=== PATIENT | female | born 1975 | race Caucasian/White ===

== ENCOUNTER 2018-06-11 10:15 | Outpatient (CLI) | payer OTHER, SELFPAY ==
[2018-06-11 22:28] LABS: Estradiol 19 pg/ml
[2018-06-12 19:12] LABS: FSH 115.1 mIU/ml; LH 42.4 mIU/ml
== END 2018-06-11 10:16 ==
PROVIDERS: PCP Nurse Practitioner Family; Visit Provider Nurse Practitioner Family
DX: N91.2 Amenorrhea, unspecified (principal)
CPT/HCPCS: 36415; 82670; 83001; 83002

== ENCOUNTER 2018-09-07 00:06 | Outpatient (CLI) | payer OTHER, SELFPAY ==
[2018-09-07 09:37] LABS: Absolute Basophil Count 0.03 k/cumm (0.0-0.2); Absolute Eosinophil Count 0.13 k/cumm (0.0-0.7); Absolute Lymphocyte Count 1.63 k/cumm (1.2-3.4); Absolute Monocyte Count 0.41 k/cumm (0.11-0.7); Absolute Neutrophil Count 3.44 k/cumm (1.2-6.7); Basophils % 0.5; Eosinophils % 2.3; HGB 13.4 g/dL (12.0-15.5); Lymphocytes % 28.9; Mean Corp. HGB Concentration 33.5 g/dL (32.0-36.0); Mean Corpuscular Volume 92.6 fL (80-95); Monocytes % 7.3; Platelet Count 238 x1000/uL (130-400); RBC 4.32 m/cumm (4.00-5.20); RBC Distribution Width 12.7 % (11.7-14.6); White Blood Cell Count 5.64 k/cumm (4.4-10.8)
[2018-09-07 10:27] LABS: TSH (W/Ref FT4) 1.85 uIU/mL (0.358-3.74)
== END 2018-09-07 00:26 ==
PROVIDERS: PCP Nurse Practitioner Family; Visit Provider Registered Nurse
DX: E03.9 Hypothyroidism, unspecified (principal); R59.1 Generalized enlarged lymph nodes
CPT/HCPCS: 36415; 84443; 85025

== ENCOUNTER 2018-09-17 01:15 | Outpatient (CLI) | payer OTHER, SELFPAY ==
--- NOTE | 2018-09-17 13:17 | DI.MAMMO_ITS ---
SYMPTOMS/DIAGNOSIS: SCREENING, Z12.31, FAMILY H/O BREAST CA BILATERAL SCREENING MAMMOGRAM: Mammograms were interpreted according to the usual protocol including computer analysis with CAD system, tomosynthesis and C view imaging. No prior comparison exams are available. The breasts are composed of heterogeneously dense fibroglandular tissue, breast density category C. No suspicious masses or suspicious microcalcifications are seen. Normal-appearing axillary lymph nodes are partially included on the exam. IMPRESSION: Category 1C, negative mammogram. Yearly screening mammography is recommended. SA ASSESSMENT OF FINDINGS: Negative. Category 1. Patient will receive a letter notifying them of these results. Bi-RADS category C. The breasts are heterogeneously dense, which may obscure small masses.
--- NOTE | 2018-09-17 13:33 | DI.US_ITS ---
SYMPTOMS/DIAGNOSIS: H/O NON-HODGKIN'S LYMPHOMA, ? LYMPHADENOPATHY OF THE LEFT AXILLA ULTRASOUND OF THE LEFT AXILLA: There are several lymph nodes in the left axilla, which maintain a normal fatty hilum. No suspicious-appearing lymph nodes are identified. No mass or fluid collection is seen. IMPRESSION: Left axillary lymph nodes maintain a normal configuration. No suspicious lymph nodes are identified.
== END 2018-09-17 01:35 ==
PROVIDERS: PCP Nurse Practitioner Family; Visit Provider Registered Nurse
DX: R59.0 Localized enlarged lymph nodes (principal); Z85.72 Personal history of non-Hodgkin lymphomas; Z12.31 Encounter for screening mammogram for malignant neoplasm of breast; Z80.3 Family history of malignant neoplasm of breast
CPT/HCPCS: 76642; 77063; 77067

== ENCOUNTER 2018-11-05 00:32 | Outpatient (CLI) | payer OTHER, SELFPAY ==
[2018-11-05] MEDS: Breeza Beverage 473 ML BTL PO ×2 (09:43→09:44)
[2018-11-05] MEDS: Omnipaque 350 MG/ML 50 ML BTL PO (09:43)
[2018-11-05] MEDS: Omnipaque 350 MG/ML 100 ML BTL IJ (11:08)
--- NOTE | 2018-11-05 11:31 | DI.CT_ITS ---
SYMPTOMS/DIAGNOSIS: LYMPHADENOPATHY, AXILLARY, R59.0; PERSONAL H/O NON-HODGKIN LYMPHOMAS, Z85.72 CT OF THE CHEST, ABDOMEN AND PELVIS: Comparison is made with ultrasound of the left axilla dated August,. Images were performed from the clavicles through the ischial tuberosities after IV and oral contrast. CHEST CT: There are no prior comparison chest CT exams. No abnormally enlarged lymph nodes are seen in the axilla, mediastinum or hilum. There is mild scarring in the anterior left medial chest adjacent to the mediastinum. This is presumably scarring related to treated lymphoma. The pulmonary arteries and aorta are well opacified with IV contrast. There is no evidence of pulmonary emboli or aortic dissection. The lungs are clear. No effusions, infiltrates or pulmonary nodules are seen. There are no suspicious bony abnormalities. IMPRESSION: Mild scarring in the medial left upper lobe adjacent to the mediastinum, likely related to treatment of lymphoma. ABDOMINAL AND PELVIC CT: There are no prior comparison exams. The liver, spleen, pancreas and adrenals are unremarkable. Stones are noted in the gallbladder. There is no biliary dilatation or gallbladder wall thickening. There are two nonobstructing stones at the lower pole of the right kidney. There are a few tiny renal cysts. There is no evidence of hydronephrosis. There are two tiny stones at the lower pole of the right kidney. No small bowel dilatation is seen. There is increased quantity of stool seen throughout the colon consistent with constipation. No inflammatory changes are seen. The uterus appears somewhat enlarged. No discrete fibroids are visible. The ovaries and bladder are unremarkable. No adenopathy is seen in the abdomen or pelvis. There is no free air or free fluid. There are no suspicious bony abnormalities. The aorta is normal in diameter. IMPRESSION: Cholelithiasis. No evidence of adenopathy.
== END 2018-11-05 00:52 ==
PROVIDERS: PCP Nurse Practitioner Family; Visit Provider Surgery
DX: R59.0 Localized enlarged lymph nodes (principal); J98.4 Other disorders of lung; K80.20 Calculus of gallbladder without cholecystitis without obstruction; Z85.72 Personal history of non-Hodgkin lymphomas
CPT/HCPCS: 74177; 80061; 71260; J3490; Q9967

== ENCOUNTER 2018-11-15 01:09 | Outpatient (CLI) | payer OTHER, SELFPAY ==
[2018-11-15 08:32] LABS: Absolute Basophil Count 0.02 k/cumm (0.0-0.2); Absolute Eosinophil Count 0.15 k/cumm (0.0-0.7); Absolute Lymphocyte Count 2.03 k/cumm (1.2-3.4); Absolute Monocyte Count 0.51 k/cumm (0.11-0.7); Absolute Neutrophil Count 2.64 k/cumm (1.2-6.7); Basophils % 0.4; Eosinophils % 2.8; HCT 38.8 % (36.0-46.0); HGB 13.4 g/dL (12.0-15.5); Lymphocytes % 37.9; Mean Corp. HGB Concentration 34.5 g/dL (32.0-36.0); Mean Corpuscular Hemoglobin 31.4 pg (27.0-33.0); Mean Corpuscular Volume 90.9 fL (80-95); Monocytes % 9.5; Neutrophils % 49.4; Platelet Count 227 x1000/uL (130-400); RBC 4.27 m/cumm (4.00-5.20); RBC Distribution Width 12.2 % (11.7-14.6); White Blood Cell Count 5.35 k/cumm (4.4-10.8)
[2018-11-15 09:28] LABS: Cholesterol 185 mg/dL (50-200); Glucose 92 mg/dL (70-100); HDL Cholesterol 79 mg/dL (40-60); LDL CHOLESTEROL 94 mg/dL (<100); Triglyceride 48 mg/dL (30-150)
[2018-11-17 11:18] LABS: HIV-1/2 Ag & Ab Screen Negative (NEGAT)
[2018-11-18 10:25] LABS: Hepatitis C Ab w Rflx HCV PCR Negative (NEGAT)
[2018-11-18 11:16] LABS: Syphilis Serology (RPR) Negative (Negative)
[2018-11-18 14:10] LABS: Chlamydia Result Negative; GC Result Negative
== END 2018-11-15 01:29 ==
PROVIDERS: PCP Nurse Practitioner Family; Visit Provider Surgery
DX: Z00.00 Encounter for general adult medical examination without abnormal findings (principal); Z13.220 Encounter for screening for lipoid disorders; Z11.3 Encounter for screening for infections with a predominantly sexual mode of transmission; Z11.59 Encounter for screening for other viral diseases; Z11.4 Encounter for screening for human immunodeficiency virus [HIV]; Z85.72 Personal history of non-Hodgkin lymphomas
CPT/HCPCS: 36415; 80061; 82947; 83721; 86803; 87389; 87491; 87591; 85025; 86592

== ENCOUNTER 2019-09-29 12:16 | Outpatient (CLI) | payer OTHER, SELFPAY ==
[2019-09-29 14:43] LABS: TSH 0.96 uIU/mL (0.36-3.74)
== END 2019-09-29 12:36 ==
PROVIDERS: PCP Nurse Practitioner Family; Visit Provider Nurse Practitioner Family
DX: E03.9 Hypothyroidism, unspecified (principal)
CPT/HCPCS: 36415; 84443

== ENCOUNTER 2020-06-16 03:18 | Outpatient (CLI) | payer OTHER, SELFPAY ==
[2020-06-16 12:12] LABS: TSH (W/Ref FT4) 0.93 uIU/mL (0.36-3.74)
== END 2020-06-16 03:38 ==
PROVIDERS: PCP Nurse Practitioner Family; Visit Provider Nurse Practitioner Family
DX: E03.9 Hypothyroidism, unspecified (principal)
CPT/HCPCS: 36415; 84443

== ENCOUNTER 2021-03-23 19:34 | Outpatient (REF) | payer OTHER, SELFPAY ==
[2021-03-23 19:46] LABS: Abs Immature Grans 0.01 10^3/uL (0.0-0.06); Absolute Basophil Count 0.04 10^3/uL (0.0-0.2); Absolute Eosinophil Count 0.23 10^3/uL (0.0-0.7); Absolute Lymphocyte Count 3.06 10^3/uL (1.2-3.4); Absolute Monocyte Count 0.55 10^3/uL (0.1-0.8); Absolute Neutrophil Count 3.75 10^3/uL (1.2-6.7); Basophils % 0.5; HCT 36.7 % (36.0-46.0); HGB 12.3 g/dL (11.2-15.7); Immature Grans % 0.1; Lymphocytes % 40.1; MCH 30.4 pg (27.0-33.0); MCHC 33.5 % (32.0-36.0); MCV 90.8 fL (80-95); Monocytes % 7.2; Neutrophils % 49.1; Nucleated RBC 0 %; Platelet Count 262 10^3/uL (130-400); RBC 4.04 10^6/uL (3.93-5.22); RDW 12.4 % (11.7-14.6); RDW-SD 41.1 fL; WBC 7.64 10^3/uL (4.4-10.8)
[2021-03-23 20:11] LABS: ALT 28 U/L (14-59); AST 15 U/L (15-37); Albumin 4.2 g/dL (3.4-5.0); Alkaline Phosphatase 50 U/L (46-116); Anion Gap 6.7 mmol/L (3-11); BUN 16 mg/dL (7-18); Bilirubin, Total 0.3 mg/dL (0.2-1.0); CO2 31.3 mmol/L (21.0-32.0); CREATININE 0.7 mg/dL (0.55-1.02); Calcium 9.3 mg/dL (8.5-10.1); Chloride 104 mmol/L (98-107); Glucose 99 mg/dL (74-106); Sodium 142 mmol/L (136-145); TSH (W/Ref FT4) 1.17 uIU/mL (0.36-3.74); Total Protein 7.4 g/dL (6.4-8.2)
== END 2021-03-23 19:35 | disposition home or self-care (01) ==
LOC: LBN 19:34
PROVIDERS: PCP Nurse Practitioner Family; Visit Provider Nurse Practitioner Family
DX: E03.9 Hypothyroidism, unspecified (principal); Z01.818 Encounter for other preprocedural examination
CPT/HCPCS: 80053; 84443; 85025

== ENCOUNTER 2021-04-04 02:24 | Outpatient (CLI) | payer OTHER, SELFPAY ==
[2021-04-04 11:39] LABS: Source Nasal/Nares
[2021-04-04 17:56] LABS: COVID-19 PCR Negative (Negative)
== END 2021-04-04 02:25 | disposition home or self-care (01) ==
LOC: LBO 02:24
PROVIDERS: PCP Nurse Practitioner Family; Visit Provider Surgery
DX: Z20.822 Contact with and (suspected) exposure to COVID-19 (principal); Z01.818 Encounter for other preprocedural examination
CPT/HCPCS: 87635

== ENCOUNTER 2021-04-05 06:14 | Day surgery (SDC) | payer OTHER, SELFPAY ==
--- NOTE | 2021-04-04 20:46 | W.PM.HP.N ---
Date of service: 04/05/21 Time of Service: 07:15 Assessment and Plan Assessment and plan (1) Gallstones without obstruction of gallbladder: Status: Acute Assessment and plan: The alternatives to surgery, risks, complications, and the possible need to convert to open cholecystectomy were discussed. Also bleeding, infection, pneumonia, blood clots, complications of anesthesia, damage to bowel, bladder, blood vessels, or bile ducts, liver, need for blood transfusions. Also: chronic pain, chronic diarrhea, reoccurrence of signs and symptoms, port site hernias, adhesions. All questions were answered and the patient elected to proceed with surgery. History of Present Illness Consults Consult date: 04/05/21 Narrative: pt is here today for GB surgery Since I saw her in the office, she has been feeling generally unwell. No severe attacks. No pain or nausea today. All questions answered and is stable for procedure. US: Multiple mobile gallstones are noted. The gallbladder wall is not thickened. There is no pericholecystic fluid or sonographic Botello's sign. The liver is mildly enlarged and shows mild fatty infiltration. No focal liver mass or biliary dilatation is seen. A stone is noted in the lower pole of the left kidney. No hydronephrosis is seen. The aorta is normal in diameter. The spleen is normal in size. The pancreas is unremarkable. from clinic consult 02/21/21: Pt is having RUQ. She has had it off/on for several yrs. Pt has a known hx of gallstones. A week ago Sunday she woke up w/ significant pain in RUQ. Sunday night- she had pizza Sunday and was fine. She did have pizza for lunch on Sunday. no vomiting. occ nausea. No diarrhea. No one at home is ill. no GI viruses in the home or at work. By Sunday, the pain was radiating straight into her back. She has No shoulder pain. No diarrhea. No H/I. no epigastric pain. She denies pain or diff swallowing. She doesn't take nsaids/asa often. smoker- no. no prior hx of stomach problems. coffee- 1-2 daily. she drinks tea as well. She has a hx of Lymphoma- 2006. She did chemo and XRT. She doesn't f/u w/ oncology as it has been 5 yrs. She had full chest/abdom XRT. Her bowel are regular. NO changes in wt. no changes in diet or supplements. no traveling. no longer gets periods. no XRT. she does have kids. Review of Systems All systems reviewed & are unremarkable except as noted in HPI and below PFSH Medical History History of female sterilization Fallopian ring Hypothyroidism Non-Hodgkin's lymphoma in remission last chemo tx 09/2007 Onychia, toe Peripheral neuropathy Social History Smoking/Tobacco Use Status: Former Tobacco Use Quit Date: 10/22/94 Smoking risk assessment performed?: Yes Alcohol Intake: current Alcohol Intake frequency: a few times a week Substance use type: does not use Do you feel safe at home: Yes Do you feel safe in your relationship?: Yes Meds Allergies and Home Medications Allergies Allergy/AdvReac Type Severity Reaction Status Date / Time penicillin V [From Pen-Vee K] Allergy Intermediate hives Verified 04/05/21 06:45 Home Medications Medication Instructions Recorded Confirmed Type cholecalciferol (vitamin D3) 25 25 mcg PO DAILY 02/18/21 04/05/21 History mcg (1,000 unit) capsule levothyroxine 112 mcg tablet 112 mcg PO DAILY 02/18/21 04/05/21 History Exam Const General: cooperative, healthy appearing, comfortable, no acute distress, well developed and well groomed Nutritional Appearance: average body habitus and well nourished Orientation: alert, awake and oriented x3 HENMT Head: normal to inspection, normocephalic and atraumatic Ears: hearing grossly normal bilaterally and external ears normal General nose exam: external nose normal Face and sinus: normal facial exam and sinuses nontender Mouth: oral mucosae normal, lip normal, tongue normal and moist mucous membranes Teeth and gingiva: dentition normal Eyes General: appearance normal, both eyes and all related structures Conjunctivae: conjunctivae normal Sclera: sclerae normal Pupils: PERRL Neck Neck: normal visual inspection and full ROM Chest Chest: normal inspection of the chest Resp Effort & Inspection: normal respiratory effort, able to speak in complete sentences, no cough, no nasal flaring, not tachypneic and no use of accessory muscles Auscultation: clear to auscultation bilaterally, no rales, no rhonchi and no wheezes Cardio Jugular venous pressure: no JVD Rate: regular rate Rhythm: regular rhythm GI Inspection: normal to inspection, no edema and non-distended Palpation: soft, no masses, nontender and No ascites Auscultation: normal bowel sounds Skin General skin exam: no rashes or lesions noted Trauma: no lacerations or abrasions Neuro General: patient alert, patient oriented x3, oriented, gait normal, moves all extremities, no focal motor deficits and CN's II-XI intact bilaterally Cognition: normal cognition Speech: speech normal Gait: normal gait Motor: muscle tone normal throughout Extrem General: normal to inspection, full ROM and no clubbing, cyanosis or edema Psych Appearance: grossly normal and well kempt Mental Status: mental status grossly normal Speech and Movement: speech and movement normal Affect: normal affect COVID-19 Screening Have you, or household traveled for leisure in last 14 days?: No Had IN PERSON contact w/suspected or confirmed C-19 person: No
[2021-04-05] VITALS (16 sets, daily range): BP systolic 100–116; BP diastolic 43–84; PULSE 58–83; RESP 14–28; TEMP 35.9–36.6; O2SAT 94–100; BMI 24.2
[2021-04-05] MEDS: Acetaminophen 500 MG TAB 1000 MG PO (06:59)
[2021-04-05] MEDS: Gabapentin 300 MG CAP PO (06:59)
[2021-04-05] MEDS: Lactated Ringers 1,000 ML 80 ML IV (07:00)
--- NOTE | 2021-04-05 07:10 | W.ANESPRE ---
General Info Date of Service Date Performed: 04/05/21 Height: 5 ft 10 in Weight: 76.5 kg Body Mass Index (BMI): 24.2 Surgical Procedure: Operation Date: 04/05/21 07:40 Proposed Procedures Side Surgeon p Cholecystectomy Laparoscopic Barbara Rodríguez DO Meds Allergies and Home Medications Allergies Allergy/AdvReac Type Severity Reaction Status Date / Time penicillin V [From Pen-Vee K] Allergy Intermediate hives Verified 04/05/21 06:45 Home Medication Medication Instructions Recorded cholecalciferol (vitamin D3) 25 25 mcg PO DAILY 02/18/21 mcg (1,000 unit) capsule levothyroxine 112 mcg tablet 112 mcg PO DAILY 02/18/21 Current Visit Medications: Current Medications Generic Name Dose Route Start Last Admin Trade Name Salinasq PRN Reason Stop Dose Admin Acetaminophen 1,000 mg 04/05/21 06:00 04/05/21 06:59 Acetaminophen 500 Mg Tab PO 05/04/21 23:59 1,000 mg PREOP LAYTON Administration Gabapentin 300 mg 04/05/21 06:00 04/05/21 06:59 Gabapentin 300 Mg Cap PO 05/04/21 23:59 300 mg PREOP LAYTON Administration Ringer's Solution 1,000 mls @ 80 mls/hr 04/05/21 06:00 IV 05/04/21 23:59 INFUSION LAYTON Cefazolin Sodium/Dextrose 1 gm in 50 mls @ 100 mls/hr 04/05/21 06:00 Ancef Duplex IVPB 05/04/21 05:59 PREOP LAYTON IV Miscellaneous Supplies 1 each 04/05/21 06:00 Iv Access IV 05/04/21 23:59 DIRECTED LAYTON Sodium Chloride 0 ml 04/05/21 06:00 Normal Saline Flush 10 Ml Syr IV 05/04/21 23:59 PRN PRN Sodium Chloride 0 ml 04/05/21 06:00 Normal Saline 10 Ml Vial IJ 05/04/21 23:59 DIRECTED PRN Sterile Water 0 ml 04/05/21 06:00 Water,Injection,Sterile 10 Ml Vial IJ 05/04/21 23:59 DIRECTED PRN PFSH Active Problems Active Problems: Problem Status Onset Code Encounter for screening for other viral diseases Z11.59 Gallstones without obstruction of gallbladder K80.20 Non-Hodgkin's lymphoma in remission C85.90 Medical History Medical History History of female sterilization Fallopian ring Hypothyroidism Non-Hodgkin's lymphoma in remission last chemo tx 09/2007 Onychia, toe Peripheral neuropathy Tobacco Smoking/Tobacco Use Status: Former Tobacco Use Alcohol Alcohol Intake: current Alcohol intake frequency: a few times a week Substance Use Substance use type: does not use Vital Signs and Lab Results Vital Signs Most Recent Vital Signs in EMR: Most Recent Vital Signs Temp Pulse Resp BP Pulse Ox 36.5 C 69 14 116/74 100 04/05/21 06:46 04/05/21 06:46 04/05/21 06:46 04/05/21 06:46 04/05/21 06:46 Lab Results Blood Type / Crossmatch: No Data to Display Complete Blood Count: White Blood Count 7.64 10^3/uL (4.4-10.8) 03/23/21 16:30 03/23/21 Red Blood Count 4.04 10^6/uL (3.93-5.22) 03/23/21 16:30 03/23/21 Hemoglobin 12.3 g/dL (11.2-15.7) 03/23/21 16:30 03/23/21 Hematocrit 36.7 % (36.0-46.0) 03/23/21 16:30 03/23/21 Platelet Count 262 10^3/uL (130-400) 03/23/21 16:30 03/23/21 Complete Metabolic Panel: Sodium Level 142 mmol/L (136-145) 03/23/21 16:30 03/23/21 Potassium Level 4.0 mmol/L (3.5-5.1) 03/23/21 16:30 03/23/21 Chloride Level 104 mmol/L (98-107) 03/23/21 16:30 03/23/21 Carbon Dioxide Level 31.3 mmol/L (21.0-32.0) 03/23/21 16:30 03/23/21 Blood Urea Nitrogen 16 mg/dL (7-18) 03/23/21 16:30 03/23/21 Creatinine 0.7 mg/dL (0.55-1.02) 03/23/21 16:30 03/23/21 Calcium Level 9.3 mg/dL (8.5-10.1) 03/23/21 16:30 03/23/21 Albumin 4.2 g/dL (3.4-5.0) 03/23/21 16:30 03/23/21 Glucose Level 99 mg/dL (74-106) 03/23/21 16:30 03/23/21 Liver Function Panel: Alanine Aminotransferase (ALT/SGPT) 28 U/L (14-59) 03/23/21 16:30 03/23/21 Aspartate Amino Transf (AST/SGOT) 15 U/L (15-37) 03/23/21 16:30 03/23/21 Coagulation Panel: No Data to Display Cardiac Panel: No Data to Display Arterial Blood Gas: No Data to Display Venous Blood Gas: No Data to Display Pancreas Panel: No Data to Display Thyroid Panel: Thyroid Stimulating Hormone (TSH) 1.17 uIU/mL (0.36-3.74) 03/23/21 16:30 03/23/21 Infectious Disease: Coronavirus (COVID-19)(PCR) Negative (Negative) 04/04/21 08:38 04/04/21 Coronavirus 2019 Source Nasal/nares 04/04/21 08:38 04/04/21 Blood Cultures: No Data to Display Toxicology Panel: No Data to Display Panel: No Data to Display Anesthesia Assessment and Plan Anesthesia History Personal History: No History of Anesthesia Complications Family History: No Family History of Anesthesia Complications Exercise Tolerance Exercise Tolerance: Metabolic Equivalents>4 Pertinent Negatives Pertinent Negatives: No Symptoms of GERD, No Major Cardiovascular Symptoms or Complaints and No Major Pulmonary Symptoms or Complaints Cardiac & Pulmonary Exam Cardiac Exam: Normal S1/S2 Heart Sounds Pulmonary Exam: Clear Bilateral Breath Sounds Airway Exam Known Difficult Airway: No Mallampati Class: 2 Mouth Opening: Normal (> 3cm) Thyromental Distance: Greater than 3 cm Neck Range of Motion: Full ROM Neck Circumference: Normal Teeth Condition: Normal Dentition ASA Classification ASA Score: ASA 2 Emergency Case?: No NPO Status NPO Status: NPO Clears >2 hours, Solids >8 hours Status Status: Not Relevant due to Medical History Anesthesia Plan Resuscitation Status: Full Code Anesthesia Technique: General Anesthesia Airway Planned: Endotracheal Tube Monitors Used: Standard Monitors
[2021-04-05] MEDS: ceFAZolin 1 GM/50 ML BAG IVPB (07:41)
--- NOTE | 2021-04-05 08:28 | GB_PTH ---
PATIENT: Mary Roche LOC: [facility] U#:[id number] AGE/SX: 45/F ROOM: RE04/05/[address]: Barbara Rodríguez : 1975 BED: DIS: 04/05/2021 SPEC #: [id number] RECD: 04/05/21 12:50 STATUS: DELFINO REQ #: [id number] SONALI: 04/05/21 08:[address]: Barbara Rodríguez DEPT: Surgical Specimen RECD BY: Verona Johnston ENTERED: 04/05/21 12:53 SP TYPE: GB OTHR DR: Ely Crouch Tissues: 1 - GALLBLADDER Procedures: GROSS AND MICRO LEVEL 3 Comments: [id number]
--- NOTE | 2021-04-05 09:02 | W.PM.OP ---
Date of service: 04/05/21 Time of Service: 09:03 Operative Note Operative Note DATE OF PROCEDURE: 04/05/21 PRE-OP DIAGNOSIS: gallstones POST-OP DIAGNOSIS: same PROCEDURE: lap dion SURGEON: Barbara Martin ANESTHESIA TYPE: Local By Surgeon and General LMA/ETT Refer to Anesthesia Record ESTIMATED BLOOD LOSS: 5 PATHOLOGY: none sent COMPLICATIONS: None Patient was transported to: PACU Patient's condition: stable Procedure Description: INDICATIONS: The pt is seen at the request of there PCP regarding acute on chronic cholecystitis, cholelithiasis. The pt has failed outpt conservative medical measures and is here today for laparoscopic cholecystectomy. Informed consent was obtained, explaining risks and benefits of the procedure including but not limited to bleeding, infection, pneumonia, blood clots, possible damage to bowel, bladder, blood vessels, bile ducts, possible open procedure, complications of general anesthesia and other unforetold complications. PROCEDURE: The patient agrees and is brought to the operative room suite and placed in supine position. Anesthesia was administered per the Department of Anesthesia. The patient did receive IV antibiotics. NG tube and Renner catheter are placed. The patient was prepped and draped in the usual sterile fashion using DuraPrep scrub solution. Pause for the cause was done. 20 mL of 1% buffered lidocaine was used for local anesthetization. A stab incision was made in the umbilicus and the Verres inserted. Drop test was positive and insufflation was begun. When 15 mm of pressure was noted on the monitor, the Veress was removed and #5 port inserted. The camera was inserted through the port and shows no damage to underlying structures. A 10 mm port was then placed in the epigastric position under direct visualization following creation of local field blocks as well as two 5 mm ports in the right upper quadrant. The gallbladder fundus was grasped and retracted towards the right shoulder. Infundibulum was grasped and retracted laterally. The hepat-duodenal ligament is entered. The cystic duct and artery are dissected out and the most inferior portion of the gallbladder plate is removed from the liver and the critical view of safety was obtained after clearing away all fatty material. Endo Clips were placed across the duct and artery and these structures are divided. The remainder of the gallbladder was excised from the liver bed. The gallbladder was placed in a bag and brought out. Examination of the gallbladder shows indeed the cystic duct and artery to have been divided. The remainder of the abdomen was copiously irrigated with a liter of saline. All saline is removed. There is no bleeding or bile leakage from the liver bed or the clips sites. An EndoClose needle was used to close the 10 mm port site with an 0 Vicryl. All ports and instruments are removed. SPonge and needle counts are correct. Pneumoperitoneum is evacuated and the port sites are monitored to make sure there is no bleeding at the time of desufflation. Port sites are irrigated and the skin is closed with 4-0 Monocryl in a running subcuticular fashion. Skin glue sterile dressings are applied. The patient tolerated the procedure well without complications, transferred to the recovery room in stable condition. BARBARA MARTIN, DO
--- NOTE | 2021-04-05 09:05 | W.PM.DSUDISC ---
Discharge Plan Disposition Patient Disposition: HOME Condition: Good Discharge Details Reason For Visit: gallbladder removal Attending Provider: Barbara Rodríguez Primary Care Provider: Ely Crouch Home Meds and New Rx's Prescriptions: New ondansetron HCl [Zofran] 4 mg tablet 4 mg PO Q6H PRNQty: 7 RF: 0 tramadol [Ultram] 50 mg tablet 50 mg PO Q6H PRNQty: 14 RF: 0 Continued cholecalciferol (vitamin D3) 25 mcg (1,000 unit) capsule 25 mcg PO DAILY RF: 0 levothyroxine [Synthroid] 112 mcg tablet 112 mcg PO DAILY RF: 0 Discharge Instructions Additional Instructions: Care after Gallbladder Surgery -You should walk frequently, gradually, increasing the distance. You may climb stairs, just go slowly. -? MEDICATIONS: Alternate Tylenol 1000mg by mouth every 8 hours and Ibuprofen 600mg every 6 hours. Make sure you take ibuprofen with food and not on an empty stomach. Take the Tylenol and ibuprofen continuously for the first 72hrs- not just when you have pain. Use the tramadol for breakthrough pain. Use ICE! Twenty minutes on, and then off, continuously for the first 72hours. If you are taking narcotic pain medication, follow the instructions on the label and do not drive. Pain medications can make you very constipated. Make sure you are moving your bowels daily. If not, take Miralax, milk of magnesia or magnesium citrate. Anesthesia makes you very constipated. Take a dose of milk of magnesia the morning after surgery. ? Use an ice bag continuously for the first 72 hours. This helps to decrease swelling, which causes pain. It is normal to be more sore/painful and swollen towards the end of the day and first thing in the morning. ? Gallbladder surgery can make you very nauseated; use Zofran for nausea, for the first 24 hours. The nausea generally stops after 24 hours. ? Use milk of magnesia or prune juice to prevent constipation (this is a particular side effect of pain medication). Do not allow yourself to become constipated. ? Avoid fatty or greasy foods; introduce these slowly, with care, after about 1 month. Follow the low-fat diet sheet that will be given to you at the office or hospital. ? Start out eating very small, bland amounts of food. Do not take pain pills on an empty stomach. - You can remove the Band-Aids and take a shower 24 hours after surgery. There will be some narrow white strips of tape across your incisions (under the Band-Aids). DO NOT REMOVE THESE. It is all right if they get wet. They will be removed in the doctor?s office. ? Do not go swimming or sit in a hot tube for two weeks. ? There are no stitches to remove. ? Do not drive your car x72hrs and then only if you have no pain and can move freely. Do not drive if you are taking pain narcotic pain medications. ? You may resume sexual activity whenever pain and soreness subside, usually in 2 weeks. ? Do no lift anything over 5 lbs. for the first 10 days. Minimize strenuous activity for the next two weeks. ? You may return to work in one week, or when you feel able, provided you do not have to do any heavy lifting or prolonged standing. ? You should return to Dr. Rodríguez?s office for a post-op appointment about one week after surgery. Please call the Surgical Clinic at: [phone] to schedule an appointment. My Medications for pain and nausea are: ibuprofen and ultram and zofran When to Call the Office: ? If the incision becomes red or swollen, or there is more than a little drainage from it. ? If you develop a temperature higher than 100.5 F. ? If your eyes turn yellow ? Vomiting and can?t keep fluids down Activity:: see above Remove Dressings/Wound Care:: 24 hours Shower/Bathe:: 24 hours Diet:: low fat DS: Diagnosis Discharge Diagnosis (1) Gallstones without obstruction of gallbladder: Status: Acute
[2021-04-05] MEDS: HYDROmorphone 2 MG/ML VIAL IVP ×2 (09:17→09:27)
[2021-04-05] MEDS: Normal Saline Flush 10 ML SYR IV ×2 (09:19→13:05)
[2021-04-05] MEDS: fentaNYL 100 MCG/2 ML VIAL IVP (09:34)
[2021-04-05] MEDS: Ketorolac 15 MG/ML VIAL IVP (09:59)
--- NOTE | 2021-04-05 11:04 | W.ANESPOSTOP ---
Postoperative Evaluation Date, Time and Location Date Performed: 04/05/21 Time Performed: 11:04 Patient Location: Day Surgery Unit Vital Signs Most Recent Imported Vital Signs: Most Recent Vital Signs Temp Pulse Resp BP Pulse Ox 36.2 C L 58 L 21 109/75 98 04/05/21 10:38 04/05/21 10:38 04/05/21 10:38 04/05/21 10:38 04/05/21 10:38 Pain Score Most Recent Pain Score: Most Recent Pain Score Pain Level 3 04/05/21 10:38 Assessment Mental Status: Awake (Alert & Oriented to Patient Baseline) Airway and Respiratory Function: Patent airway with normal (patient baseline) respiratory exam Cardiovascular Function: Hemodynamically Stable Hydration Status: Adequately Hydrated Nausea & Vomiting: No Nausea or Vomiting Pain: Pain is tolerable/mild (<5/10) Peripheral Nerve Block: Patient did not receive a nerve block
[2021-04-05] MEDS: traMADol 50 MG TAB PO (11:11)
[2021-04-05] MEDS: Droperidol 5 MG/2 ML VIAL 0.625 MG IVP (13:05)
[2021-04-05] MEDS: Scopolamine 1 MG/3 DAYS PATCH TD (14:22)
== END 2021-04-05 14:36 | disposition home or self-care (01) ==
PROVIDERS: PCP Nurse Practitioner Family; Visit Provider Surgery
PROC: 0FT44ZZ Resection of Gallbladder, Percutaneous Endoscopic Approach (ICD-10-PCS; CPT 47562; principal; 2021-04-05 07:30)
DX: K80.10 Calculus of gallbladder with chronic cholecystitis without obstruction (principal); Z85.72 Personal history of non-Hodgkin lymphomas
CPT/HCPCS: 47562; 88304; J0690; J1100; J1790; J1885; J2250; J2405; J2704; J3010

== ENCOUNTER 2021-07-08 10:12 | Outpatient (REF) | payer OTHER, SELFPAY ==
[2021-07-09 01:12] LABS: COVID-19 RT-PCR UVMMC Result Negative (Negative)
== END 2021-07-08 10:13 | disposition home or self-care (01) ==
LOC: LBO 10:12
PROVIDERS: PCP Nurse Practitioner Family; Visit Provider Nurse Practitioner Family
DX: Z20.822 Contact with and (suspected) exposure to COVID-19 (principal)
CPT/HCPCS: U0003

== ENCOUNTER → 2022-08-15 01:44 | Outpatient (CLI) | payer OTHER, SELFPAY ==
--- NOTE | 2022-08-15 | DI.CT_ITS ---
Exam(s) CT CHEST W EXAM: CT CHEST W CLINICAL HISTORY: HX LYMPHOMA Z85.72 CHEST WALL MASS R22.2. TECHNIQUE: Multi planar reconstructions were performed. CONTRAST MATERIAL: Omnipaque 350; 75 cc COMPARISON: No exams were available for comparison FINDINGS: CHEST: KRISTIE: There is a skin marker on the anterior chest wall medial aspect of the left breast. There is no skin thickening nor subcutaneous abnormality at this exact level. No obvious significant asymmetry in the anterior rib cartilages at this level. LUNGS: Some benign-appearing increased markings are noted in the anterior segment of the left upper l obe. Also similar findings in the medial segment of the right middle lobe. There are no confluent p ulmonary infiltrates. There are no pleural effusions. No significant findings in trachea and mainst em bronchi. No bronchiectasis. MEDIASTINUM: There is no hilar nor mediastinal adenopathy. Visualized thyroid unremarkable. CARDIAC: Heart size is normal. There is no pericardial effusion.Caliber of the thoracic aorta is wit hin normal limits. VISUALIZED UPPER ABDOMEN:There are no significant adrenal masses. Spleen size normal. Gallbladder s urgically absent. OSSEOUS: No significant osseous lesions.. IMPRESSION: 1. No significant subcutaneous findings immediately subjacent to the skin marker which is over the me dial aspect left breast. Also no skin thickening at this level. 2. Benign-appearing lung markings in the anterior segment left upper lobe and medial segment right mi ddle. No confluent infiltrates. No ominous pulmonary nodules. No pleural effusions nor intrathorac ic adenopathy. 3. Normal spleen size. Gallbladder surgically absent. RADIATION DOSE DELIVERED: 495.18mGy.cm Total DLP DATA REPOSITORY: All CT scans at this facility are submitted to the National Radiology Data Registry (NRDR) Dose Index Registry (DIR) with the [employer] (ACR). RADIATION OPTIMIZATION: All CT scans at this facility use at least one of these dose optimization te chniques: automated exposure control; mA and/or kV adjustment per patient size (includes targeted exa ms where dose is matched to clinical indication); or iterative reconstruction.
[2022-08-15] MEDS: Omnipaque 350 MG/ML 100 ML BTL IJ (08:56)
[2022-08-15] MEDS: Normal Saline Flush 10 ML SYR IVP (09:04)
== END ==
PROVIDERS: PCP Nurse Practitioner Family; Visit Provider Nurse Practitioner Primary Care
DX: R91.8 Other nonspecific abnormal finding of lung field (principal)
CPT/HCPCS: 71260; J3490

== ENCOUNTER 2022-09-07 03:19 | Outpatient (CLI) | payer OTHER, SELFPAY ==
[2022-09-07 08:27] LABS: TSH (W/Ref FT4) 3.39 uIU/mL (0.36-3.74)
== END 2022-09-07 03:20 | disposition home or self-care (01) ==
PROVIDERS: PCP Nurse Practitioner Family; Visit Provider Nurse Practitioner Primary Care
DX: E03.9 Hypothyroidism, unspecified (principal)
CPT/HCPCS: 36415; 84443

== ENCOUNTER 2022-11-20 02:53 | Outpatient (CLI) | payer OTHER, SELFPAY ==
[2022-11-20 11:45] LABS: TSH (W/Ref FT4) 1.11 uIU/mL (0.36-3.74)
== END 2022-11-20 02:54 | disposition home or self-care (01) ==
PROVIDERS: PCP Nurse Practitioner Family; Visit Provider Nurse Practitioner Primary Care
DX: E03.9 Hypothyroidism, unspecified (principal)
CPT/HCPCS: 36415; 84443

== ENCOUNTER 2022-12-26 02:27 | Outpatient (CLI) | payer OTHER, SELFPAY ==
--- OUTSIDE RECORDS SUMMARY | 2022-12-24 16:04 | XMS_ITS | Continuity of Care Document ---
Author Name Unknown Organization [facility] Ambulatory Clinics Address [address] [place] [address] Care Team Providers Care Infrastructure Manager Name Role Phone Arleen Estrada APRN Primary Care Physician Encounter [facility] NBR [id number] Date(s): 09/26/22 - 09/26/22 [facility] Ambulatory [facility] [address] [place] [id number] Encounter Diagnosis PMB (postmenopausal bleeding)(Discharge Diagnosis) - 09/26/22 History of non-Hodgkin's lymphoma(Discharge Diagnosis) - 09/26/22 Hypothyroidism(Discharge Diagnosis) - 09/26/22 Discharge Disposition: Home or Self Care Attending Physician: Ignacio Summers Allergies, Adverse Reactions, Alerts Substance Reaction Severity Status venlafaxine Unknown Active penicillin V potassium Hives Moderate Activ e traMADol Unknown Active Functional Status 09/26/22 Other exposure to Infectious Disease Non e Medications cholecalciferol 1000 intl units oral capsule 25 mcg = 1 cap, Oral, Daily, # 100 cap, 0 Refill(s) Start Date: 09/24/22 Status: Ordered levothyroxine 125 mcg (0.125 mg) oral tablet 125 mcg = 1 tab, Oral, Daily, # 90 tab, 0 Refill(s) Start Date: 09/26/22 Status: Ordered Problem List Condition Confirmation Course Effective Dates Status H ealth Status Informant Amenorrhea Confirmed Active Cholelithiasis 1 Confirmed Active Fatigue Confirmed Active H/O herpes zoster virus Confirmed Active History of non-Hodgkin's lymphoma 2 Confirmed Active Hypothyroidism Confirmed Active Chest wall mass Confirmed Active Onychia, toe Confirmed Active Peripheral neuropathy 3 Confirmed Active PMB (postmenopausal bleeding) Confirmed Active 1cho 2Remission - six cycles of R-CHOP, then radiation therapy ending 12/2007 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 Procedures Procedure Date Related Diagnosis Body Site Status Laparoscopic cholecystectomy 09/1899 Completed Vital Signs Most recent to oldest [Reference Range]: 1 Blood Pressure [90-140/60-90 mmHg] 102/7 4mmHg (09/26/22 9:38 AM) Weight 78.2 kg (09/26/22 9:38 AM) Weight Measured (lbs) 172.401 lb (09/26/22 9:38 AM) [place] Body Weight Calculated 68.5 kg (09/26/22 9:38 AM) Height 177.80 cm (09/26/22 9:38 AM) Height/Length Measured (inches) 70 inch (09/26/22 9:38 AM) BSA Measured 1.97 m2 (09/26/22 9:38 AM) Body Mass Index 24.74 kg/m2 (09/26/22 9:38 AM) Social History Social History Type Response Smoking Status Smoking tobacco use: Former tobacco user;Never; Total pack years: 4; 1 entered on: 09/24/22 Sex Female 1Quit smoking in 1994 Physician Outpatient Note * Ignacio Summers P: PERFORM Event Display: Office Clinic Note Physician Authored Date: [id number] JYOTI GARVIN :1975 Age:46 years Sex:Female Visit Date:09/26/2022 Primary Care Physician: Arleen Estrada APRN Chief Complaint Referral due to Postmenopausal Bleeding Additional Information Postmenopausal since 2009, possible brought on by chemotherapy/radiation in History of Present Illness 46yo Female, The patient is here today by referral due to Postmenopausal Bleeding.?? She reports a single episode of vaginal bleeding that began on??08/27/2022. ??At first there was light spotting??for 1 day. ??Then on the second third day??bleeding increased. ??She characterizes it as a light menstrual flow.??Then on the fourth day there was??light spotting. ??After??that day there was no further bleeding.?? He has not had??any menstruation since 2009.?? She has a history of??Non-Hodgkin's Lymphoma, and received Chemotherapy and Radiation??treatments in 2006 and 2007.?? Her last Pap smear??done??on 09/05??at??[facility]. ??It??was Cytology Negative and Negative for High Risk HPV DNA.?? She reports having??HPV on a Pap smear in the past. Review of Systems Constitutional: No fevers, chills, sweats, no weight loss, no weight gain Eye: No new visual problems Respiratory: No shortness of breath, cough Cardiovascular: No chest pain, palpitations, syncope Gastrointestinal: No nausea, vomiting, diarrhea Genitourinary: No blood in urine, no urinary urgency, frequency, leakage, no painful urination, no difficulty urinating Power Driven Brush Maker: Postmenopausal bleeding. ??No??odor, discharge, no vulvar itching, pain, dryness,??no pelvic pain Heme/Lymph: Negative for bruising tendency, swollen lymph glands Endocrine: Thyroid disease. ??Negative for cold intolerance, new unexpected hair growth Skin: No bruises, abrasions Psychiatric: No anxiety, depression Physical Exam Vitals & Measurements BP:??102/74?? HT:??177.80??cm?? WT:??78.2??kg?? BMI:??24.74?? BSA:??1.97?? General: Alert and oriented, well nourished, no acute distress Eye: Pupils equal, EOMI HEENT: Normocephalic, grossly normal hearing, moist oral mucosa, no scleral icterus Neck: Supple, no thyroid enlargement, no lymphadenopathy Lungs: Clear to auscultation, non-labored respiration Heart: Normal rate, regular rhythm, no murmurs Abdomen: Soft, non-tender, non-distended, normal bowel sounds, no masses Musculoskeletal: Grossly normal range of motion and strength, no tenderness or swelling Skin: Skin is warm, dry, no rashes Neurologic: Awake, alert, and oriented X4, CN II-XII grossly intact Psychiatric: Cooperative, appropriate mood and affect ?? Vulva: Normal external female genitalia, no masses, mild atrophy, Bartholin???s and Lipscomb???s glands normal Vagina: No abnormal discharge or blood. Adequate pelvic support Cervix: Normal appearance, no lesions or lacerations Uterus: Normal size, shape, non tender, mobile, no prolapse Adnexa: No masses or tenderness Procedure ENDOMETRIAL BIOPSY??with Cervical Dilation: ?? With the patient in supine position on the exam table, a??speculum was inserted into the vagina.?? The cervix was visualized and cleaned with??Betadine.?? The cervix was grasped anteriorly with a single-tooth tenaculum.?? The endometrial Pipelle was not able to be inserted through the cervical os due to stenosis. Small dilators were used to progressively dilate the cervix the Pipelle was then??easily inserted??into the endometrial cavity.?? The uterus sounded to 7 cm. ??The endometrial Pipelle was removed. ??Adequate??tissue??was obtained??to send to Pathology. ??The??instruments were removed from the vagina.?? There was minimal bleeding.?? The patient??tolerated the procedure well. Assessment/Plan 1.??PMB (postmenopausal bleeding)??N95.0 2.??History of non-Hodgkin's lymphoma??Z85.72 3.??Hypothyroidism??E03.9 At today''s appointment, I reviewed with the patient that the bleeding she is having can be worrisome. Typically, this type of bleeding is often from a benign source such as an endometrial polyp or fibroid tumor within the uterus. It can also be due to hormonal changes, or some shifting with her hormonal ratios. More worrisome however, the bleeding can be from endometrial cancer or significant endometrial hyperplasia. Typically, in this situation, I recommend patients have an endometrial biopsybecause it allows confirmation of benign tissue. We then proceeded with endometrial biopsy in the office. Problem List/Past Medical History Ongoing Amenorrhea Chest wall mass Cholelithiasis Fatigue H/O herpes zoster virus History of non-Hodgkin's lymphoma Hypothyroidism Onychia, toe Peripheral neuropathy PMB (postmenopausal bleeding) Historical Procedure/Surgical History ???Laparoscopic cholecystectomy (09/1899) Medications cholecalciferol 1000 intl units oral capsule, 25 mcg= 1 cap, Oral, Daily levothyroxine 125 mcg (0.125 mg) oral tablet, 125 mcg= 1 tab, Oral, Daily Allergies penicillin V potassium??(Hives) traMADol venlafaxine Social History Alcohol Current, 1-2 times per month Electronic Cigarette/Vaping Electronic Cigarette Use: Never. 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 Home/Environment Lives with Children, Significant other. Living situation: Home/Independent. Sexual Sexually active: No. Substance Use Never Tobacco Former tobacco user Tobacco Use:. Total pack years: 4. Never Smokeless Tobacco use:.- Comments: Quit smoking in 1994 Family History Cancer: Mother. Non-Hodgkin's lymphoma: Brother. Family Member(s): ?? FATHER, at age: Unknown. Cause of : Colon cancer Electronically Signed on 09/26/22 10:27 AM Ignacio Summers Patient Care team information Personnel Name: Arleen CLIFFORD Estrada Address: Address: [address] [place] [id number]
--- NOTE | 2022-12-26 | DI.MAMMO_ITS ---
Exam(s) MAMMO SCREENING EXAM: MAMMO SCREENING CLINICAL HISTORY: SCREENING, Z12.31. TECHNIQUE: Bilateral full field digital CC and MLO mammographic images were obtained with 3D tomosyn thesis and utilizing computer aided detection (CAD). COMPARISON: Prior mammograms were reviewed. FINDINGS: There has been no significant change in the appearance and distribution of the fibroglandular tissue. There are no new spiculated masses nor malignant appearing microcalcification groups. There is no significant architectural distortion nor skin thickening-retraction. IMPRESSION: No radiographic evidence of malignancy. BI-RADS Category 1 - Negative Breast Density - Category C - Heterogeneously dense Breast density Category C or D implies that the patient has dense breast tissue. Dense breast tissue can make it harder to find cancer on a mammogram. Dense breast tissue is also associated with an incr eased risk of breast cancer. This information about the result of the mammogram report was provided to the patient to raise their awareness. Use this report when you speak with the patient about their risks for breast cancer, which includes their family history. At that time, you may recommend additional screening tests (Ultrasoun d or MRI) as these tests may add significant information. A negative radiographic report should not delay biopsy if a dominant or clinically suspicious mass is present. Up to ten percent of cancers are not identified on mammography. A negative report may reinforce clinical impression. Adenosis and dense breasts may obscure an underlying neoplasm. False positive reports average 6 to 10%. Patient will receive a letter notifying them of these results.
== END 2022-12-26 02:47 ==
LOC: DI 02:28
PROVIDERS: PCP Nurse Practitioner Family; Visit Provider Nurse Practitioner Primary Care
DX: Z12.31 Encounter for screening mammogram for malignant neoplasm of breast (principal)
CPT/HCPCS: 77063; 77067

== ENCOUNTER 2023-02-21 19:05 | Emergency (ER) | payer OTHER, SELFPAY ==
[2023-02-21 19:09] VITALS: BP 151/101; PULSE 96; RESP 18; TEMP 36.6; O2SAT 100
--- NOTE | 2023-02-21 19:15 | DI.CT_ITS ---
Exam(s) CT BRAIN CTA EXAM: CT BRAIN CTA CLINICAL HISTORY: headache. TECHNIQUE: Imaging Protocol: Axial CT angiography was performed with multi-slice acquisition and mu lti-planar and/or 3D reconstructions. CONTRAST MATERIAL: Intravenous: Omnipaque 350 contrast volume:100 mL COMPARISON: No priors for comparison. FINDINGS: CT Head W/O: Ventricles and Extra axial spaces: Normal in size and morphology for the patient's age. Hemorrhage: None. Cerebral parenchyma: Normal. Midline shift: None. Brainstem/Cerebellum: Normal. Calvarium: Normal. Visualized Paranasal sinuses/Mastoids: Clear. Soft Tissues: Unremarkable. Enhancement: Unremarkable. CTA Brain W: Internal Carotid Arteries: No aneurysm, occlusion or significant stenosis. Anterior Cerebral Arteries: Right: No aneurysm, occlusion or significant stenosis. Left: No aneurysm, occlusion or significant stenosis. Middle Cerebral Arteries: Right: No aneurysm, occlusion or significant stenosis. Left: No aneurysm, occlusion or significant stenosis. Posterior cerebral Arteries: Right: No aneurysm, occlusion or significant stenosis. Left: No aneurysm, occlusion or significant stenosis. Vertebral Arteries: Right: No aneurysm, occlusion or significant stenosis. Left: No aneurysm, occlusion or significant stenosis. Basilar Artery: No aneurysm, occlusion or significant stenosis. IMPRESSION: 1. No evidence of large vessel occlusion or significant stenosis on the CT angiography of the head. 2. No acute intracranial process. RADIATION DOSE DELIVERED: 1,983.56mGy.cm Total DLP DATA REPOSITORY: All CT scans at this facility are submitted to the National Radiology Data Registry (NRDR) Dose Index Registry (DIR) with the [employer] (ACR). RADIATION OPTIMIZATION: All CT scans at this facility use at least one of these dose optimization te chniques: automated exposure control; mA and/or kV adjustment per patient size (includes targeted exa ms where dose is matched to clinical indication); or iterative reconstruction.
[2023-02-21 19:38] LABS: Abs Immature Grans 0.01 10^3/uL (0.0-0.06); Absolute Basophil Count 0.05 10^3/uL (0.0-0.2); Absolute Lymphocyte Count 2.99 10^3/uL (1.2-3.4); Absolute Monocyte Count 0.51 10^3/uL (0.1-0.8); Absolute Neutrophil Count 4.34 10^3/uL (1.2-6.7); Basophils % 0.6; Eosinophils % 1.3; HCT 41.3 % (36.0-46.0); HGB 14.1 g/dL (11.2-15.7); Immature Grans % 0.1; Lymphocytes % 37.4; MCH 30.3 pg (27.0-33.0); MCHC 34.1 % (32.0-36.0); MCV 89 fL (80-95); MPV 9.9 fL (8.0-11.0); Monocytes % 6.4; Neutrophils % 54.2; Platelet Count 255 10^3/uL (130-400); RBC 4.65 10^6/uL (3.93-5.22); RDW-SD 38.7 fL
[2023-02-21 19:44] LABS: ESR 8 mm/hr (0-20)
[2023-02-21 19:53] LABS: Prothrombin Time 9.8 sec (9.3-11.0)
--- NOTE | 2023-02-21 19:53 | W.ED.GENAD ---
Discharge Plan Disposition Patient Disposition: Home Condition: Stable Discharge Details Clinical Impression: Headache Primary Care Provider: ARMOND LASSITER ED Provider: Maxwell Smith Home Meds and New Rx's Prescriptions: Continued cholecalciferol (vitamin D3) 25 mcg (1,000 unit) capsule 25 mcg PO DAILY levothyroxine [Synthroid] 112 mcg tablet 112 mcg PO DAILY Discharge Instructions Instructions: General Headache (ED) Additional Instructions: You may try to use [id number] Excedrin Migraine to see if this helps with your headache type symptoms. Continue to monitor symptoms and return immediately for any new or significant worsening of your condition otherwise follow-up with your primary care provider preferably early next week for reassessment and consideration further work-up if indicated at that time. Referrals: ARMOND LASSITER [Primary Care Provider] - 5 days Discharge Data Discharge Date/Time-TO BE ENTERED AT DEPARTURE: 02/21/23 21:41 Medical Decision Making Patient presenting to the emergency department for chief complaint of head pressure and some tingling to the left alevism. She states this has been going on for the past week and has noted some increasing symptoms. Patient denies any focal weakness, difficulty speaking, visual changes, or other neurological symptoms. Patient denies any fever chills, chest pain or other symptoms. Physical exam is unremarkable, no obvious tenderness noted to the temporal region, sensation is intact, normal cranial nerve exam and overall neuro exam is nondiagnostic. Patient does have significant past medical history of non-Hodgkin's lymphoma in remission. Given patient stating increasing symptoms and history of cancer we will perform head CT imaging. We will also include ESR and CRP given that patient does state some discomfort to her left alevism. Patient denies any need or desire for medication pending results. Will perform head CTA imaging along with labs. Reviewed patient's labs which show a unremarkable and normal CBC, ESR was in normal range, PT PTT and INR within normal range, patient has slightly elevated glucose of 122 otherwise all other CMP findings are normal, CRP is also within normal range. Reviewed radiological imaging that shows no acute findings on CTA and also no intracranial findings on Noncon head. Discussed unremarkable work-up with patient along with recommendation to follow-up with primary care provider for reassessment and consideration of further imaging if needed. Encourage patient to use Excedrin Migraine to see if this helps but she did not want to take anything this evening and states she would prefer to go home. Did inform patient of low threshold to return for any new or significant worsening of symptoms. After discussion of diagnosis and plan of care patient has no further needs, questions, or concerns and states clear understanding to return to the emergency department for any worsening symptoms. This documentation was generated using [employer] dictation system, please disregard any oddities of phrase or misspellings. Imaging Data Radiologic Study: Imaging: CT Scan Radiologist's impression: Exam(s) PROCEDURE INFORMATION: Exam: CTA Head Without And With Contrast, Arteriography Exam date and time: 02/21/2023 8:31 PM Age: 47 years old Clinical indication: Stroke-like symptoms; Headache TECHNIQUE: Imaging protocol: Computed tomographic angiography of the head without and with contrast. Exam focused on the arteries. 3D rendering (Not supervised by radiologist): MIP and/or 3D reconstructed images were created by the technologist. Radiation optimization: All CT scans at this facility use at least one of these dose optimization techniques: automated exposure control; mA and/or kV adjustment per patient size (includes targeted exams where dose is matched to clinical indication); or iterative reconstruction. Contrast material: OMNI 350; Contrast volume: 100 ml; Contrast route: INTRAVENOUS (IV); Other technique: STROKE PROTOCOL was implemented. COMPARISON: No relevant prior studies available. FINDINGS: ANTERIOR CIRCULATION: Right internal carotid artery: Intracranial segment is patent with no significant stenosis or occlusion. No aneurysm. Right middle cerebral artery: No occlusion or significant stenosis. No aneurysm. Right anterior cerebral artery: No occlusion or significant stenosis. No aneurysm. Left internal carotid artery: Intracranial segment is patent with no significant stenosis. No aneurysm. Left middle cerebral artery: No occlusion or significant stenosis. No aneurysm. Left anterior cerebral artery: No occlusion or significant stenosis. No aneurysm. POSTERIOR CIRCULATION: Right vertebral artery: No occlusion or significant stenosis. No aneurysm. Left vertebral artery: No occlusion or significant stenosis. No aneurysm. Basilar artery: No occlusion or significant stenosis. No aneurysm. Right posterior cerebral artery: No occlusion or significant stenosis. No aneurysm. Left posterior cerebral artery: No occlusion or significant stenosis. No aneurysm. HEAD: Brain: Normal. No hemorrhage. Unremarkable white matter. No mass effect. Cerebral ventricles: Normal. No ventriculomegaly. Bones/joints: Unremarkable. No acute fracture. Paranasal sinuses: Visualized sinuses are normal. No fluid levels. Mastoid air cells: Visualized mastoids are normal. No mastoid effusion. Soft tissues: Unremarkable. IMPRESSION: No large vessel occlusion. Unremarkable CT head. Lab Data Lab results reviewed: Yes I reviewed the patient's lab results. HPI General Mode of arrival: ambulatory. Date/Time Provider Initiated Documentation: 02/21/23 19:09. Limitations to Documentation: no limitations. Information obtained by: patient. History of Present Illness 47 year old F presents to the emergency department with the chief complaint of Head pressure and tingling, described as moderate, with intensity rated at 4. and is localized to the head. Patient reports no radiation. Patient started experiencing this week(s) (1) and it has been constant. No relieving factors improve symptom(s), No exacerbating factors reported . Patient did receive the following treatments prior to arrival, none Related Data Home Medications Medication Instructions Recorded Confirmed cholecalciferol (vitamin D3) 25 25 mcg PO DAILY 02/18/21 02/21/23 mcg (1,000 unit) capsule levothyroxine 112 mcg tablet 112 mcg PO DAILY 02/18/21 02/21/23 (Synthroid) Allergies Allergy/AdvReac Type Severity Reaction Status Date / Time penicillin V [From Pen-Vee K] Allergy Intermediate hives Verified 04/05/21 06:45 tramadol AdvReac Other (See Verified 02/21/23 19:14 Comment) Venlafaxine Analogues AdvReac Dizziness/L Verified 02/21/23 19:14 ighthead General Stated Complaint: Headache MARY: 3 Review of Systems Constitutional Constitutional: Denies chills, Denies fever(s), Reports headache(s) and Denies malaise Eyes Eyes: Denies blurry vision and Denies change in vision ENT Ears, Nose, Mouth, and Throat: Denies dizziness, Reports headache(s), Denies neck pain and Denies sore throat Cardiovascular Cardiovascular: Denies chest pain and Denies syncope Gastrointestinal Gastrointestinal: Reports nausea and Denies vomiting Musculoskeletal Musculoskeletal: Denies neck pain and Reports tingling (Subjective to left side of forehead and alevism) Neurologic Neurologic: Reports as per HPI, Denies confusion, Denies dizziness, Denies syncope, Reports headache(s), Denies localized weakness, Denies other visual disturbances, Denies sensory deficit, Reports tingling (Subjective to left side of forehead and alevism) and Denies paresthesias Psychiatric Psychiatric: Denies confusion PFSH All Active Problems (Updated 02/21/23 @ 21:27 by Maxwell Smith NP) Headache (Acute) Encounter for screening for other viral diseases (Acute) Gallstones without obstruction of gallbladder (Acute) Non-Hodgkin's lymphoma in remission (Acute) last chemo tx 09/2007 Medical History History of female sterilization Fallopian ring Hypothyroidism Onychia, toe Peripheral neuropathy Social History Smoking/Tobacco Use Status: Former Tobacco Use Quit Date: 10/22/94 Smoking risk assessment performed?: Yes Alcohol Intake: current Alcohol Intake frequency: a few times a week Substance use type: does not use Do you feel safe at home: Yes Do you feel safe in your relationship?: Yes Exam Const General: cooperative, healthy appearing, no acute distress and well groomed Orientation: alert, awake and oriented x3 HENMT Head: normal to inspection Ears: hearing grossly normal bilaterally and TM's normal bilaterally Mouth: oral mucosae normal and moist mucous membranes Throat: posterior oropharynx normal Eyes Visual Flores: normal visual flores by confrontation Alignment and Position: alignment normal Periorbital: periorbital findings normal Eyelids: eyelids normal Sclera: sclerae normal Cornea: corneas normal Pupils: PERRL EOM: EOM intact bilaterally Neck Neck: normal visual inspection, full ROM, no lymphadenopathy and no meningeal signs Resp Effort & Inspection: normal respiratory effort and able to speak in complete sentences Auscultation: clear to auscultation bilaterally Cardio Rate: regular rate Rhythm: regular rhythm Heart Sounds: S1 normal and S2 normal Neuro General: patient alert, patient awake, patient oriented x3, gait normal, tone normal, moves all extremities, CN's II-XI intact bilaterally and not confused Cognition: normal cognition Speech: speech normal Motor: muscle tone normal throughout, strength 5/5 throughout, no pronator drift, no movement abnormalities noted and no fasciculations Sensory Exam: no sensory deficits noted Coordination: Does not sway with eyes open Course Vital Signs Vital signs: Vital Signs Temperature 36.6 C 02/21/23 19:09 Pulse 96 H 02/21/23 19:09 Respiratory Rate 18 02/21/23 19:09 Blood Pressure 151/101 H 02/21/23 19:09 Pulse Oximetry 100 02/21/23 19:09 Temperature 36.6 C 02/21/23 19:09 Temperature Source Oral 02/21/23 19:09 Pulse 96 H 02/21/23 19:09 Respiratory Rate 18 02/21/23 19:09 Respiratory Effort Normal, Non-Labored 02/21/23 19:12 Blood Pressure 151/101 H 02/21/23 19:09 Blood Pressure Position Sitting 02/21/23 19:09 Pulse Oximetry 100 02/21/23 19:09 Pain Level 4 02/21/23 19:09 Lab/Test Results Lab/Test Results: Laboratory Tests Range/Units 02/21/23 02/21/23 19:28 19:28 WBC (4.4-10.8) 10^3/uL 8.00 RBC (3.93-5.22) 10^6/uL 4.65 Hgb (11.2-15.7) g/dL 14.1 Hct (36.0-46.0) % 41.3 MCV (80-95) fL 89 MCH (27.0-33.0) pg 30.3 MCHC (32.0-36.0) % 34.1 RDW (11.7-14.6) % 12.0 Plt Count (130-400) 10^3/uL 255 MPV (8.0-11.0) fL 9.9 Immature Gran % 0.1 Neutrophils % 54.2 Lymphocytes % 37.4 Monocytes % 6.4 Eosinophils % 1.3 Basophils % 0.6 Nucleated RBC % (0.0-0.3) % 0.0 Absolute Neutrophils (1.2-6.7) 10^3/uL 4.34 Absolute Lymphocytes (1.2-3.4) 10^3/uL 2.99 Absolute Monocytes (0.1-0.8) 10^3/uL 0.51 Absolute Eosinophils (0.0-0.7) 10^3/uL 0.10 Absolute Basophils (0.0-0.2) 10^3/uL 0.05 ESR (0-20) mm/hr 8 POC- Test(urine) Negative
[2023-02-21 20:01] LABS: ALT 35 U/L (14-59); AST 17 U/L (15-37); Albumin 4.7 g/dL (3.4-5.0); Alkaline Phosphatase 48 U/L (46-116); Anion Gap 8.2 mmol/L (3-11); BUN 16 mg/dL (7-18); Bilirubin, Total 0.5 mg/dL (0.2-1.0); C-Reactive Protein 0.18 mg/dL (0.0-0.3); CO2 29.8 mmol/L (21.0-32.0); CREATININE 0.8 mg/dL (0.55-1.02); Chloride 105 mmol/L (98-107); Estimated GFR 90.27 (mL/min/1.73m2); Glucose 122 mg/dL (74-106); Potassium 3.5 mmol/L (3.5-5.1); Sodium 143 mmol/L (136-145); Total Protein 8.8 g/dL (6.4-8.2)
[2023-02-21] MEDS: Normal Saline - Diluent 50 ML VIAL IJ (20:32)
[2023-02-21] MEDS: Omnipaque 350 MG/ML 100 ML BTL IJ (20:45)
--- NOTE | 2023-02-21 20:53 | DI.VRAD_ITS ---
PROCEDURE INFORMATION: Exam: CTA Head Without And With Contrast, Arteriography Exam date and time: 02/21/2023 8:31 PM Age: 47 years old Clinical indication: Stroke-like symptoms; Headache TECHNIQUE: Imaging protocol: Computed tomographic angiography of the head without and with contrast. Exam focused on the arteries. 3D rendering (Not supervised by radiologist): MIP and/or 3D reconstructed images were created by the technologist. Radiation optimization: All CT scans at this facility use at least one of these dose optimization techniques: automated exposure control; mA and/or kV adjustment per patient size (includes targeted exams where dose is matched to clinical indication); or iterative reconstruction. Contrast material: OMNI 350; Contrast volume: 100 ml; Contrast route: INTRAVENOUS (IV); Other technique: STROKE PROTOCOL was implemented. COMPARISON: No relevant prior studies available. FINDINGS: ANTERIOR CIRCULATION: Right internal carotid artery: Intracranial segment is patent with no significant stenosis or occlusion. No aneurysm. Right middle cerebral artery: No occlusion or significant stenosis. No aneurysm. Right anterior cerebral artery: No occlusion or significant stenosis. No aneurysm. Left internal carotid artery: Intracranial segment is patent with no significant stenosis. No aneurysm. Left middle cerebral artery: No occlusion or significant stenosis. No aneurysm. Left anterior cerebral artery: No occlusion or significant stenosis. No aneurysm. POSTERIOR CIRCULATION: Right vertebral artery: No occlusion or significant stenosis. No aneurysm. Left vertebral artery: No occlusion or significant stenosis. No aneurysm. Basilar artery: No occlusion or significant stenosis. No aneurysm. Right posterior cerebral artery: No occlusion or significant stenosis. No aneurysm. Left posterior cerebral artery: No occlusion or significant stenosis. No aneurysm. HEAD: Brain: Normal. No hemorrhage. Unremarkable white matter. No mass effect. Cerebral ventricles: Normal. No ventriculomegaly. Bones/joints: Unremarkable. No acute fracture. Paranasal sinuses: Visualized sinuses are normal. No fluid levels. Mastoid air cells: Visualized mastoids are normal. No mastoid effusion. Soft tissues: Unremarkable. IMPRESSION: No large vessel occlusion. Unremarkable CT head. ASSESSMENT: ASPECTS ([place] Stroke Program Early CT Score) is 10. Dictated and Authenticated by: Stephane Myers MD. Ordering:JUAREZ Arreola MD
[2023-02-21 21:38] VITALS: BP 111/66; PULSE 71; RESP 16; TEMP 36.9; O2SAT 99
== END 2023-02-21 21:41 | disposition home or self-care (01) ==
PROVIDERS: Emergency Provider Nurse Practitioner Family; PCP Nurse Practitioner Primary Care
DX: R51.9 Headache, unspecified (principal); R55 Syncope and collapse; Z85.72 Personal history of non-Hodgkin lymphomas
CPT/HCPCS: 36415; 70496; 80053; 81025; 85652; 99285; 85025; 85610; 85730; 86140; 99283; J3490

== ENCOUNTER 2023-02-23 12:47 | Emergency (ER) | payer OTHER, SELFPAY ==
[2023-02-23] VITALS (10 sets, daily range): BP systolic 113–137; BP diastolic 59–74; PULSE 71–95; RESP 16–18; TEMP 36.5; O2SAT 95–100
--- NOTE | 2023-02-23 13:06 | DI.MRI_ITS ---
Exam(s) MR BRAIN WO/W EXAM: MR BRAIN WO/W CLINICAL HISTORY: left facial paresthesia, L weakness, hx lymphoma TECHNIQUE: Multiplanar multisequence MRI of the brain was performed. Both noninfused and contrast i nfused sequences were performed. IV Contrast injected was cc Dotarem. COMPARISON: CT CT CHEST W from 08/15/[address] BRAIN CTA from 02/21/2023 FINDINGS: CEREBRAL PARENCHYMA: No evidence of intracranial hemorrhage, mass effect nor shift of midline structu re. No extraaxial fluid collections. Ventricles are not enlarged nor shifted. There is no significant focal signal abnormality in the cerebellar hemispheres nor within the shilpi, m idbrain, and thalami. There is no abnormal signal abnormality in the periventricular white matter. No evidence of demyelin ating disease in the white matter. DWI: No areas of restricted diffusion to suggest acute ischemic event. SWI: No microhemorrhages evident. There are no ring enhancing lesions in the brain. There is no abnormal meningeal enhancement. PITUITARY GLAND: No mass nor parasellar abnormality. No obvious abnormality in the cavernous sinuses. FLOW VOIDS: The expected flow void are noted. No evidence of obvious aneurysm nor obvious vascular ma lformation. PARANASAL SINUSES: Mild mucosal thickening thickening noted in the floor of the left maxillary sinus. No associated fluid level. Right maxillary sinus is clear as are the remainder of the paranasal si nuses. ORBITS: No obvious abnormal findings. IMPRESSION: 1. No significant intracranial findings on this MRI scan of the brain. 2. No abnormal enhancing intracranial findings. There are no ring enhancing lesions in the brain and there is no abnormal meningeal enhancement. 3. There is no evidence of demyelinating disease, as per request Called by myself to ER physician DATA REPOSITORY:
[2023-02-23 13:15] LABS: Abs Immature Grans 0.02 10^3/uL (0.0-0.06); Absolute Basophil Count 0.04 10^3/uL (0.0-0.2); Absolute Eosinophil Count 0.12 10^3/uL (0.0-0.7); Absolute Lymphocyte Count 2.19 10^3/uL (1.2-3.4); Absolute Monocyte Count 0.54 10^3/uL (0.1-0.8); Absolute Neutrophil Count 5.75 10^3/uL (1.2-6.7); Basophils % 0.5; Eosinophils % 1.4; HCT 41.5 % (36.0-46.0); HGB 14.2 g/dL (11.2-15.7); Immature Grans % 0.2; Lymphocytes % 25.3; MCH 30.1 pg (27.0-33.0); MCHC 34.2 % (32.0-36.0); MCV 88 fL (80-95); MPV 9.8 fL (8.0-11.0); Monocytes % 6.2; Neutrophils % 66.4; Platelet Count 248 10^3/uL (130-400); RBC 4.72 10^6/uL (3.93-5.22); RDW 11.9 % (11.7-14.6); RDW-SD 38.2 fL; WBC 8.66 10^3/uL (4.4-10.8)
--- NOTE | 2023-02-23 13:16 | ED.GENADUL_ITS ---
Discharge Plan Disposition Patient Disposition: Home Condition: Improving Discharge Details Chief Complaint: CVA/TIA Clinical Impression: Headache, Paresthesia Primary Care Provider: ARMOND LASSITER ED Provider: Jean Carlos Jay Home Meds and New Rx's Prescriptions: No Action cholecalciferol (vitamin D3) 25 mcg (1,000 unit) capsule 25 mcg PO DAILY levothyroxine [Synthroid] 112 mcg tablet 112 mcg PO DAILY Discharge Instructions Instructions: General Headache (ED) Additional Instructions: Please follow-up closely with neurology team. Please return to the emergency department for any worsening symptoms Medical Decision Making 47-year-old female history of non-Hodgkin's lymphoma, recurrent headaches presents with 1 week of left temporal headache gradual in onset worsening over the past several days, recent negative evaluation including lab work and CTA head and neck, worsening headache over the last day with now paresthesias of left face and left upper extremity, 5/5 strength upper and lower extremities, largely cranial nerves intact however possible slight left nasolabial fold droop, normal speech, no ataxia, afebrile nonmeningeal. Consider atypical migraine versus CVA versus metastatic disease to brain versus tension type headache versus very low suspicion for infectious process such as encephalitis or meningitis versus less likely temporal arteritis given quality of discomfort versus trigeminal neuralgia. Screening labs stat MRI close reassessment of symptoms after medications trial of sumatriptan dexamethasone and fluids 14: 58 patient endorsing improvement of her left arm symptomatology. Slight improvement of head symptoms however still feels slight pressure superior aspect of her head. Awaiting official read from MRI. Will trial Toradol and Ativan. 15: 15 patient resting comfortably. Hemodynamically stable neurologically intact. MRI unremarkable. Consider atypical migraine versus trigeminal neuralgia versus less likely TIA. Will arrange neurology follow-up for early next week. Home care instructions and return precautions given HPI General Date/Time Provider Initiated Documentation: 02/23/23 12:50 . HPI Narrative: 47-year-old female history of non-Hodgkin's lymphoma, recurrent headaches, presents with 1 week of left-sided temporal headache gradual onset had a negative work-up on February 21, with negative CTA and labs sent home with return precautions presents with worsening left temporal headache now with paresthesias of face and subjective weakness of left upper extremity over the last day Related Data Home Medications Medication Instructions Recorded Confirmed cholecalciferol (vitamin D3) 25 25 mcg PO DAILY 02/18/21 02/23/23 mcg (1,000 unit) capsule levothyroxine 112 mcg tablet 112 mcg PO DAILY 02/18/21 02/23/23 (Synthroid) Allergies Allergy/AdvReac Type Severity Reaction Status Date / Time penicillin V [From Pen-Vee K] Allergy Intermediate hives Verified 02/23/23 12:54 tramadol AdvReac Other (See Verified 02/23/23 12:54 Comment) Venlafaxine Analogues AdvReac Dizziness/L Verified 02/23/23 12:54 ighthead General Stated Complaint: CVA/TIA MARY: 2 Review of Systems Narrative: Review of Systems Constitutional: negative Eyes: negative ENT: negative Cardiovascular: negative Respiratory: negative Gastrointestinal: negative : negative Musculoskeletal: negative Skin: negative Neurologic: Headache, paresthesia Psych: negative PFSH All Active Problems (Updated 02/23/23 @ 15:18 by Jean Carlos Jay MD) Headache (Acute) Headache (Acute) Paresthesia (Acute) Encounter for screening for other viral diseases (Acute) Gallstones without obstruction of gallbladder (Acute) Non-Hodgkin's lymphoma in remission (Acute) last chemo tx 09/2007 Medical History History of female sterilization Fallopian ring Hypothyroidism Onychia, toe Peripheral neuropathy Social History Smoking/Tobacco Use Status: Former Tobacco Use Quit Date: 10/22/94 Smoking risk assessment performed?: Yes Alcohol Intake: current Alcohol Intake frequency: a few times a month Alcohol type: beer and wine Drug use: Never Substance use type: does not use Do you feel safe at home: Yes Do you feel safe in your relationship?: Yes Exam Narrative Exam Narrative: Physical Examination General: alert, awake, cooperative, uncomfortable appearing HEENT: normocephalic, atraumatic; PERRL, EOM intact, conjunctiva normal; no nasal discharge; moist mucous membranes, oral and pharyngeal mucosa normal, tolerating secretions Neck: supple, trachea midline; full ROM Chest: normal to inspection Respiratory: normal respiratory effort, speaking in full sentences, clear to auscultation, no wheezing, rales or rhonchi Cardiac: regular rate, regular rhythm, S1S2 intact, no murmurs rubs or gallops GI: abdomen soft, non-tender, non-distended; no palpable mass or hepatosplenomegaly Skin: no lesions, rashes or trauma appreciated Neuro: AAOx3, normal speech, moving all extremities; 5/5 strength upper and lower extremities bilaterally, consider mild left labial fold droop otherwise cranial nerves intact, no ataxia Psych: Appropriate mood and affect Course Vital Signs Vital signs: Vital Signs Temperature 36.5 C 02/23/23 12:48 Pulse 95 H 02/23/23 12:48 Respiratory Rate 16 02/23/23 12:48 Blood Pressure 137/59 L 02/23/23 12:48 Pulse Oximetry 100 02/23/23 12:48 Temperature 36.5 C 02/23/23 12:48 Temperature Source Oral 02/23/23 12:48 Pulse 95 H 02/23/23 12:48 Respiratory Rate 18 02/23/23 12:56 Respiratory Effort Normal, Non-Labored 02/23/23 12:56 Respiratory Depth Normal 02/23/23 12:56 Respiratory Pattern Normal 02/23/23 12:56 Blood Pressure 137/59 L 02/23/23 12:48 Blood Pressure Position Supine 02/23/23 12:48 Pulse Oximetry 100 02/23/23 12:48 Oxygen Delivery Method Room Air 02/23/23 12:48 Oxygen Flow Rate 0 02/23/23 12:48 Pain Level 4 02/23/23 12:48 PAWSS Have you Been Recently Intoxicated or Drunk Within the Last 30 days?: No Have you Ever Experienced Previous Episodes of Alcohol Withdrawal?: No Have you ever Experienced Withdrawal Seizures?: No Have you ever Experienced Delirium Tremens(DT)s?: No Have you ever undergone Alcohol Rehabilitation Treatment (i.e, inpt ot outpatient treatment programs)?: No Have you ever Experienced Blackouts?: No Have you ever Combined Alcohol with other Downers within the last 90 days?: No Have you ever Combined Alcohol with any other Substance of Abuse during the last 90 days?: No Positive Blood Alcohol level on Presentation? [PCS.BAL]: No Evidence of Increased Autonomic Activity (i.e. HR>120, tremor, sweating, agitation, nausea)?: No Result: 0
[2023-02-23] MEDS: Dexamethasone 10 MG/ML VIAL IVP (13:25)
[2023-02-23] MEDS: SUMAtriptan 6 MG/0.5 ML VIAL SC (13:25)
[2023-02-23] MEDS: Normal Saline 1,000 ML 1000 ML IV (13:26)
[2023-02-23 13:34] LABS: ALT 37 U/L (14-59); AST 17 U/L (15-37); Albumin 4.6 g/dL (3.4-5.0); Alkaline Phosphatase 45 U/L (46-116); BUN 19 mg/dL (7-18); Bilirubin, Total 0.7 mg/dL (0.2-1.0); CREATININE 0.8 mg/dL (0.55-1.02); Calcium 9.8 mg/dL (8.5-10.1); Chloride 101 mmol/L (98-107); Estimated GFR 90.27 (mL/min/1.73m2); Glucose 103 mg/dL (74-106); Potassium 3.2 mmol/L (3.5-5.1); Sodium 139 mmol/L (136-145); Total Protein 8.6 g/dL (6.4-8.2)
[2023-02-23] MEDS: Gadoterate meglumine 20 ML SYRINGE 16 ML IVP (14:20)
[2023-02-23] MEDS: Normal Saline Flush 10 ML SYR IVP (14:20)
[2023-02-23] MEDS: Ketorolac 15 MG/ML VIAL IVP (15:04)
[2023-02-23] MEDS: LORazepam 2 MG/ML VIAL 0.5 MG IVP (15:04)
--- NOTE | 2023-02-23 15:24 | NUR.NOTE ---
Nursing Note: PT needs Neurology follow up early next week for headaches, Antonina, ED
[2023-02-26 10:28] LABS: Lyme Ab w Rflx to Lyme Confirm Negative (Negative)
[2023-02-27 17:02] LABS: Anaplasma phagocytophilum Negative (Negative); B. miyamotoi PCR Negative (Negative); Babesia divergens/MO-1 Negative (Negative); Babesia duncani Negative (Negative); Babesia microti Negative (Negative); Ehrlichia chaffeensis Negative (Negative); Ehrlichia ewingii/canis Negative (Negative); Ehrlichia muris eauclairensis Negative (Negative)
== END 2023-02-23 15:27 | disposition home or self-care (01) ==
PROVIDERS: Emergency Provider Emergency Medicine; PCP Nurse Practitioner Primary Care
DX: R51.9 Headache, unspecified (principal); R20.2 Paresthesia of skin; R53.1 Weakness; Z85.72 Personal history of non-Hodgkin lymphomas
CPT/HCPCS: 36415; 70553; 80053; 87798; 96361; 96372; 96374; 96375; 99284; 85025; 86618; J1100; J1885; J2060

== ENCOUNTER 2023-04-03 02:00 | Outpatient (CLI) | payer OTHER, SELFPAY ==
[2023-04-03 14:38] LABS: TSH (W/Ref FT4) 1.46 uIU/mL (0.36-3.74)
== END 2023-04-03 02:01 | disposition home or self-care (01) ==
PROVIDERS: PCP Nurse Practitioner Primary Care; Visit Provider Nurse Practitioner Primary Care
DX: E03.9 Hypothyroidism, unspecified (principal)
CPT/HCPCS: 36415; 84443

== ENCOUNTER 2023-06-05 20:53 | Outpatient (CLI) | payer OTHER, SELFPAY ==
[2023-06-05 14:44] LABS: Abs Immature Grans 0.02 10^3/uL (0.0-0.06); Absolute Basophil Count 0.05 10^3/uL (0.0-0.2); Absolute Eosinophil Count 0.12 10^3/uL (0.0-0.7); Absolute Lymphocyte Count 2.66 10^3/uL (1.2-3.4); Absolute Monocyte Count 0.46 10^3/uL (0.1-0.8); Absolute Neutrophil Count 4.75 10^3/uL (1.2-6.7); Basophils % 0.6; Eosinophils % 1.5; HCT 39.1 % (36.0-46.0); Immature Grans % 0.2; MCH 29.2 pg (27.0-33.0); MCHC 33.2 % (32.0-36.0); MCV 88 fL (80-95); MPV 9.7 fL (8.0-11.0); Monocytes % 5.7; Platelet Count 254 10^3/uL (130-400); RBC 4.45 10^6/uL (3.93-5.22); RDW-SD 41.8 fL; WBC 8.06 10^3/uL (4.4-10.8)
[2023-06-05 15:29] LABS: ALT 31 U/L (14-59); AST 14 U/L (15-37); Albumin 4.1 g/dL (3.4-5.0); Alkaline Phosphatase 44 U/L (46-116); Anion Gap 8.6 mmol/L (3-11); BUN 17 mg/dL (7-18); Bilirubin, Total 0.4 mg/dL (0.2-1.0); CO2 30.4 mmol/L (21.0-32.0); CREATININE 0.6 mg/dL (0.55-1.02); Calcium 9.4 mg/dL (8.5-10.1); Chloride 106 mmol/L (98-107); Estimated GFR 109.96 (mL/min/1.73m2); Glucose 102 mg/dL (74-106); Lipase 50 U/L (16-77); Potassium 3.8 mmol/L (3.5-5.1); Sodium 145 mmol/L (136-145); Total Protein 7.4 g/dL (6.4-8.2)
== END 2023-06-05 20:54 | disposition home or self-care (01) ==
LOC: LBO 20:54
PROVIDERS: PCP Nurse Practitioner Primary Care; Visit Provider Nurse Practitioner Primary Care
DX: R10.11 Right upper quadrant pain (principal)
CPT/HCPCS: 36415; 80053; 83690; 85025

== ENCOUNTER 2023-08-17 13:03 | Day surgery (SDC) | payer OTHER, SELFPAY ==
--- NOTE | 2023-08-17 07:41 | PDOC.DSDIS_ITS ---
Date of service: 08/17/23 Time of Service: 15:16 Discharge Plan Disposition Patient Disposition: Home Condition: Good Discharge Details Reason For Visit: colon cancer screening Attending Provider: Barbara Rodríguez Primary Care Provider: ARMOND LASSITER Home Meds and New Rx's Prescriptions: No Action cholecalciferol (vitamin D3) 25 mcg (1,000 unit) capsule 25 mcg PO DAILY levothyroxine [Synthroid] 112 mcg tablet 125 mcg PO DAILY Discharge Instructions Additional Instructions: [facility] Colonoscopy Post- Op Instructions Instructions for Everyone who is given Anesthesia: For your safety, please do the following for the next twenty-four (24) hours: *Do Not operate a motor vehicle (car, truck, motorcycle, etc.) *Do Not drink alcoholic beverages or use any recreational drugs for the first 24 hours or while taking pain medications. The medications in your body may have a reaction that can be dangerous. *Do Not make any important decisions or sign any important papers. Findings: x2 polyps Follow up: My office will send a letter in 2 to 3 weeks time with the results of the pathology and when we want you to repeat the colonoscopy, most likely 5 years time. 1. No lifting over 20 pounds or strenuous activity for the first 24 hours after your procedure. After 24 hours there are no restrictions on your activity but you may feel fatigued for a few days. 2. After you arrive home you may have a light meal and return to your normal diet as you can tolerate it without feeling sick to your stomach. 3. You may have a bloated, gaseous feeling in your belly (abdomen) after a colonoscopy. Passing gas and belching will help. Walking or lying down on your left side with your knees flexed may relieve the discomfort. Call the office at [phone] (Office) or [phone] (Hospital) right away if you notice any of the following: a.Vomiting of blood or ?coffee ground stools?. b.Rectal bleeding 1Tbsp, blood clots or continuous bleeding. c.Severe belly (abdominal) pain. d.A hard distended belly (abdomen) and an inability to pass gas. 4. Please don?t expect to have a normal BM (bowel movement) for 2-3 days after your procedure. 5. If there are questions regarding the findings of your procedure, please contact your doctor 6. If you are unable to contact your doctor with a problem, contact the hospital at [phone]. 7. Continue all your regular medications unless directed otherwise. I understand the above instructions and have no questions. Signature of Patient or Adult Escort Name of Responsible Adult Escort Signature of Nurse Date/Time Activity:: see above Diet:: see above Discharge Orders Discharge Orders: Discharge Order (Routine); Ordered 08/17/23 Ordered By: Barbara Rodríguez DS: Diagnosis Discharge Diagnosis (1) Non-Hodgkin's lymphoma in remission: (2) Gallstones without obstruction of gallbladder: (3) Peripheral neuropathy: (4) Hypothyroidism: (5) Screening for malignant neoplasm of colon performed: Status: Acute (6) Adenomatous polyps: Status: Acute Asessment and Plan: The patient is seen and examined after their colonoscopy.? The patient has been able to pass gas.? They are not having abdominal pain.? They have been able to tolerate liquids and a snack.? They do not have any nausea or vomiting.? They are not having any chest pain or shortness of breath.??? They are not having any rectal bleeding. Their vital signs have been stable-see nursing notes. We discussed findings during their colonoscopy, and any biopsies that were done/polyps that were removed. The patient will be sent a letter with any biopsy results, and when to repeat the colonoscopy.-see discharge instructions. Patient was given explicit instructions to follow-up regarding colonoscopy-refer to discharge instructions.? We reviewed resumption of medications. Patient verbalized understanding and discharged in stable and satisfactory condition- See nursing notes.
--- NOTE | 2023-08-17 07:41 | W.COLOREPORT ---
Date of service: 08/17/23 Time of Service: 15:14 Colonoscopy Report Date of procedure: 08/17/23 Pre-op diagnosis general: crc screening Post-op diagnosis procedure note: other (A. polyps) Surgeon: Barbara Rodríguez Anesthesia Type: General:No Airway Estimated blood loss (mL): 2 Complications: None Disposition: same day Prep: Miralax/Dulcolax Retraction Time: 13 Procedure Description: After informed consent was obtained the patient was taken to the procedure room and placed in a left decubitous position. Monitors were applied and a time out was done. The patients name, date of , procedure, allergies to medications and metal in their body was reviewed. The patient was then sedated. Once sedated and comfortable a rectal exam was done. External exam was normal. Internal exam revealed a normal sphincter tone and no palpable masses. The scope was then introduced and retrofelexed. No internal hemorrhoids were identified. The scope was then advanced to the cecum without difficulty. The TI and appendiceal orifice were identified. The prep was BBPS 3 for a total of 9. The scope was then slowly retracted over 13 minutes back into the rectum. there are no diverticula visualized. She has x2 polyps that are 0.75 cm flat polyp. These are both at 60 cm. They are both with a cold biting forcep. All specimen is retrieved and no bleeding is noted.. The scope was removed and the patient was woken up and taken back to Same day surgery in stable condition. The patient tolerated the procedure well and there were no immediate complications. Follow up: The patient should follow up in 5-7 years, path pd, unless they develop changes in bowel habits or other new gastrointestinal complaints.
[2023-08-17 13:05] VITALS: BP 121/70; PULSE 85; RESP 18; TEMP 36.4; O2SAT 100
[2023-08-17] MEDS: Lactated Ringers 1,000 ML 80 ML IV (13:36)
--- NOTE | 2023-08-17 14:33 | W.ANESPRE ---
General Info Date of Service Date Performed: 08/17/23 Height: 5 ft 10 in Weight: 76 kg Body Mass Index (BMI): 24.0 Surgical Procedure: Operation Date: 08/17/23 13:05 Proposed Procedure Side Surgeon rachel Rodríguez DO Meds Allergies and Home Medications Allergies Allergy/AdvReac Type Severity Reaction Status Date / Time penicillin V [From Pen-Vee K] Allergy Intermediate hives Verified 08/17/23 13:16 tramadol AdvReac Other (See Verified 08/17/23 13:16 Comment) Venlafaxine Analogues AdvReac Dizziness/L Verified 08/17/23 13:16 ighthead Home Medication Medication Instructions Recorded cholecalciferol (vitamin D3) 25 25 mcg PO DAILY 02/18/21 mcg (1,000 unit) capsule levothyroxine 112 mcg tablet 125 mcg PO DAILY 04/17/23 (Synthroid) Current Visit Medications: Current Medications Generic Name Dose Route Start Last Admin Trade Name Freq PRN Reason Stop Dose Admin Hyoscyamine Sulfate 0.125 mg 08/17/23 03:10 Hyoscyamine 0.125 Mg Sl/Oral/Chew SL 09/16/23 03:09 DIRECTED PRN Ringer's Solution 1,000 mls @ 80 mls/hr 08/17/23 06:00 08/17/23 13:36 IV 08/17/23 23:59 80 mls/hr INFUSION LAYTON Administration IV Miscellaneous Supplies 1 each 08/17/23 06:00 Iv Access IV 08/17/23 23:59 DIRECTED L[place]TON Ondansetron HCl 4 mg 08/17/23 03:10 Ondansetron 4 Mg/2 Ml Vial IVP 09/16/23 03:09 Q4H PRN PRN Nausea / Vomiting Sodium Chloride 0 ml 08/17/23 06:00 Normal Saline Flush 10 Ml Syr IV 08/17/23 23:59 PRN PRN Sodium Chloride 0 ml 08/17/23 06:00 Normal Saline 10 Ml Vial IJ 08/17/23 23:59 DIRECTED PRN Sterile Water 0 ml 08/17/23 06:00 Water,Injection,Sterile 10 Ml Vial IJ 08/17/23 23:59 DIRECTED PRN PFSH Active Problems Active Problems: Problem Status Onset Code Screening for malignant neoplasm of colon performed Z12.11 Medical History Medical History Postmenopausal bleeding Atypical migraine Migraine headache with aura Gallstones without obstruction of gallbladder Non-Hodgkin's lymphoma in remission last chemo tx 09/2007 Fatigue History of female sterilization Fallopian ring 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 Hypothyroidism Onychia, toe Surgical History Surgical History S/P laparoscopic cholecystectomy (~2020) S/P tubal ligation (~2003) Tobacco Smoking/Tobacco Use Status: Former Tobacco Use Alcohol Alcohol Intake: current Alcohol intake frequency: holidays/special occasions only Alcohol type: beer and wine Substance Use Substance use: Never Substance use type: does not use Vital Signs and Lab Results Vital Signs Most Recent Vital Signs in EMR: Most Recent Vital Signs Temp Pulse Resp BP Pulse Ox 36.4 C L 85 18 121/70 100 08/17/23 13:05 08/17/23 13:05 08/17/23 13:05 08/17/23 13:05 08/17/23 13:05 Lab Results Blood Type / Crossmatch: No Data to Display Complete Blood Count: No Data to Display Complete Metabolic Panel: No Data to Display Liver Function Panel: No Data to Display Coagulation Panel: No Data to Display Cardiac Panel: No Data to Display Arterial Blood Gas: No Data to Display Venous Blood Gas: No Data to Display Pancreas Panel: No Data to Display Thyroid Panel: No Data to Display Infectious Disease: No Data to Display Blood Cultures: No Data to Display Toxicology Panel: No Data to Display Panel: No Data to Display Anesthesia Assessment and Plan Anesthesia History Personal History: No History of Anesthesia Complications Family History: No Family History of Anesthesia Complications Exercise Tolerance Exercise Tolerance: Metabolic Equivalents>4 Pertinent Negatives Pertinent Negatives: No Symptoms of GERD Cardiac & Pulmonary Exam Cardiac Exam: Normal S1/S2 Heart Sounds Pulmonary Exam: Clear Bilateral Breath Sounds Implantable Cardiac Device Does patient have a Pacemaker or an ICD?: No Airway Exam Known Difficult Airway: No Mallampati Class: 2 Mouth Opening: Normal (> 3cm) Thyromental Distance: Greater than 3 cm Neck Range of Motion: Full ROM Neck Circumference: Normal Teeth Condition: Normal Dentition ASA Classification ASA Score: ASA 2 Emergency Case?: No NPO Status NPO Status: NPO Clears >2 hours, Solids >8 hours Status Status: Not Relevant due to Medical History Anesthesia Plan Resuscitation Status: Full Code Anesthesia Technique: General Anesthesia Airway Planned: Natural Airway Monitors Used: Standard Monitors
[2023-08-17 14:34] VITALS: BMI 24.0
--- NOTE | 2023-08-17 14:58 | BOWEL_PTH ---
PATIENT: Mary Roche LOC: [facility] U#:[id number] AGE/SX: 47/F ROOM: RE08/17/[address]: Barbara Rodríguez : 1975 BED: DIS: 08/17/2023 SPEC #: [id number] RECD: 08/17/23 16:24 STATUS: DELFINO REQ #: [id number] SONALI: 08/17/23 14:[address]: Barbara Rodríguez DEPT: Surgical Specimen RECD BY: Verona Johnston ENTERED: 08/17/23 16:25 SP TYPE: Bowel OTHR DR: ARMOND LASSITER Tissues: 1 - BIOPSY BOWEL Procedures: GROSS AND MICRO LEVEL 4 Comments: [id number]
[2023-08-17 15:21] VITALS: BP 99/62; PULSE 92; RESP 18; TEMP 36.4; O2SAT 100
--- NOTE | 2023-08-17 15:35 | W.ANESPOSTOP ---
Postoperative Evaluation Date, Time and Location Date Performed: 08/17/23 Time Performed: 15:35 Patient Location: Day Surgery Unit Vital Signs Most Recent Imported Vital Signs: Most Recent Vital Signs Temp Pulse Resp BP Pulse Ox 36.4 C L 92 H 18 99/62 L 100 08/17/23 15:21 08/17/23 15:21 08/17/23 15:21 08/17/23 15:21 08/17/23 15:21 Pain Score Most Recent Pain Score: Most Recent Pain Score Pain Level 0 08/17/23 15:21 Assessment Mental Status: Awake (Alert & Oriented to Patient Baseline) Airway and Respiratory Function: Patent airway with normal (patient baseline) respiratory exam Cardiovascular Function: Hemodynamically Stable Hydration Status: Adequately Hydrated Nausea & Vomiting: No Nausea or Vomiting Pain: Pt. Denies Any Pain Peripheral Nerve Block: Patient did not receive a nerve block
[2023-08-17 15:45] VITALS: BP 104/71; PULSE 71; RESP 18; TEMP 36.8; O2SAT 100
== END 2023-08-17 16:05 | disposition home or self-care (01) ==
PROVIDERS: PCP Nurse Practitioner Primary Care; Visit Provider Surgery
PROC: 0DJD8ZZ Inspection of Lower Intestinal Tract, Via Natural or Artificial Opening Endoscopic (ICD-10-PCS; CPT 45378; principal; 2023-08-17 13:00)
DX: Z12.11 Encounter for screening for malignant neoplasm of colon; K63.5 Polyp of colon
CPT/HCPCS: 45380; 88305

== ENCOUNTER → 2024-04-15 02:00 | Outpatient (CLI) | payer OTHER, SELFPAY ==
--- NOTE | 2024-04-15 | DI.RAD_ITS ---
Exam(s) XR LUMBAR SPINE COMPLETE EXAM: XR LUMBAR SPINE COMPLETE CLINICAL HISTORY: ARTHRITIS, M46.96. TECHNIQUE: 2D digital imaging was performed. Five views. COMPARISON: No exams were available for comparison FINDINGS: BONES: No fracture or destructive lesion. Vertebral body heights are maintained. Mild facet hypertro phy identified. DISKS: Intervertebral disc spaces are maintained. ALIGNMENT: Lumbar spinal alignment is within normal limits. SOFT TISSUE: Large quantity of stool seen in the descending and sigmoid colon. Right upper quadrant surgical clips. IMPRESSION: Mild degenerative changes of the facet joints. DATA REPOSITORY: RADIATION DOSE DELIVERED:
--- NOTE | 2024-04-15 | DI.MAMMO_ITS ---
Exam(s) MAMMO SCREENING EXAM: MAMMO SCREENING CLINICAL HISTORY: SCREENING, Z12.31 TECHNIQUE: Mammograms were interpreted according to the usual protocol including computer analysis w [employer] CAD system, tomosynthesis and C-view imaging. COMPARISON: 2017 through 2022 FINDINGS: The breasts are composed of heterogeneously dense fibroglandular densities, Breast Density category C . No suspicious masses or suspicious microcalcifications are seen. No skin thickening or abnormal axillary lymph nodes are seen. There has been no significant change from prior exams. IMPRESSION: BI-RADS Category 1, Negative mammogram. Yearly screening mammography is recommended. Breast Density Category C, heterogeneously Dense. The mammogram demonstrates the patient's breast tissue is dense. Dense breast tissue is very common a nd is not abnormal but dense breast tissue can make it harder to find cancer on a mammogram. Also, de nse breast tissue may increase breast cancer risk. This information about the result of the mammogram report was provided to the patient to raise their awareness. Use this report when you speak with the patient about their risks for breast cancer, which includes their family history. At that time, you may recommend additional screening tests (Ultrasound or MRI) as they might be useful based on their r isk. A negative radiographic report should not delay biopsy if a dominant or clinically suspicious mass is present. Up to ten percent of cancers are not identified on mammography. A negative report may reinforce clinical impression. Adenosis and dense breasts may obscure an underlying neoplasm. False positive reports average 6 to 10%.
[2024-04-15 09:53] LABS: ALT 36 U/L (14-59); AST 18 U/L (15-37); Albumin 4.1 g/dL (3.4-5.0); Alkaline Phosphatase 46 U/L (46-116); Anion Gap 5.3 mmol/L (3-11); BUN 18 mg/dL (7-18); Bilirubin, Total 0.58 mg/dL (0.2-1.0); CO2 33.7 mmol/L (21.0-32.0); CREATININE 0.7 mg/dL (0.55-1.02); Calcium 9.4 mg/dL (8.5-10.1); Calculated LDL 93 mg/dL (<100); Chloride 105 mmol/L (98-107); Cholesterol 190 mg/dL (<200); Glucose 101 mg/dL (74-106); HDL Cholesterol 83 mg/dL (40-60); Potassium 4.5 mmol/L (3.5-5.1); Sodium 144 mmol/L (136-145); TSH 1.13 uIU/Ml (0.36-3.74); Total Protein 7.8 g/dL (6.4-8.2); Triglyceride 70 mg/dL (<150)
== END ==
PROVIDERS: PCP Nurse Practitioner Primary Care; Visit Provider Nurse Practitioner Family
DX: Z12.31 Encounter for screening mammogram for malignant neoplasm of breast (principal); M46.96 Unspecified inflammatory spondylopathy, lumbar region; K76.0 Fatty (change of) liver, not elsewhere classified; Z13.6 Encounter for screening for cardiovascular disorders; E03.9 Hypothyroidism, unspecified
CPT/HCPCS: 36415; 77063; 77067; 80053; 80061; 72110; 84443

== ENCOUNTER 2025-03-09 02:48 | Outpatient (CLI) | payer OTHER, SELFPAY ==
--- NOTE | 2025-03-09 | DI.MRI_ITS ---
Exam(s) MR LUMBAR SPINE WO EXAM: MR LUMBAR SPINE WO CLINICAL HISTORY: M46.96,M54.16 Arthritis.lumbar spine, back pain,lumbar w/radicuolpathy,. TECHNIQUE: Multiplanar multisequence MRI of the Lumbar spine was performed. COMPARISON: CR XR LUMBAR SPINE COMPLETE from 04/15/2024 FINDINGS: Bones: The last intervertebral disc space is designated the L5/S1 level for the numbering purpose of this ex amination. The vertebral body heights are well maintained. Alignment: Unremarkable. The marrow signal characteristics are unremarkable with the exception of mild degenerative signal kasi nges on the left side of the inferior endplate of L5. Cord: The conus tip ends at the T12 level. It is of normal size and signal intensity. T12-L1: No focal disc herniation is present. No central spinal canal stenosis.No neural foraminal st enosis. L1-2: No focal disc herniation is present. No central spinal canal stenosis.No neural foraminal sten osis. L2-3: No focal disc herniation is present. No central spinal canal stenosis.No neural foraminal jose david nosis. L3-4: Minimal disc bulging.No focal disc herniation is present. No central spinal canal stenosis.No neural foraminal stenosis. L4-5:Minimal disc bulging. Mild facet degenerative changes. No focal disc herniation is present. N o central spinal canal stenosis.No neural foraminal stenosis. L5-S1: Minimal left-sided disc bulging. Small osteophytes eccentric toward the left.No focal disc he rniation is present. No central spinal canal stenosis.No neural foraminal stenosis. Nerve root sheath cyst at S2. Additional nerve root sheath cysts seen in the right neural foramen at T 11 12 and T12-L1. The visualized SI joints and sacrum are unremarkable. Soft tissues: The paraspinal soft tissues are unremarkable. IMPRESSION: Minimal disc bulging at L3-4 through L5-S1. No evidence of significant spinal stenosis or neuroforam inal narrowing. Multiple nerve root sheath cysts. DATA REPOSITORY:
== END 2025-03-09 03:08 ==
LOC: DI 02:49
PROVIDERS: PCP Nurse Practitioner Primary Care; Visit Provider Nurse Practitioner Family
DX: M46.96 Unspecified inflammatory spondylopathy, lumbar region (principal); M54.16 Radiculopathy, lumbar region
CPT/HCPCS: 72148

== ENCOUNTER 2025-04-23 02:37 | Outpatient (CLI) | payer OTHER, SELFPAY ==
[2025-04-23 08:53] LABS: TSH 0.70 uIU/mL (0.36-3.74)
== END 2025-04-23 02:38 | disposition home or self-care (01) ==
PROVIDERS: PCP Nurse Practitioner Primary Care; Visit Provider Nurse Practitioner Family
DX: E03.9 Hypothyroidism, unspecified (principal)
CPT/HCPCS: 36415; 84443

== ENCOUNTER 2025-05-04 02:28 | Outpatient (CLI) | payer OTHER, SELFPAY ==
--- NOTE | 2025-05-04 | DI.MAMMO_ITS ---
Exam(s) MAMMO SCREENING EXAM: MAMMO SCREENING CLINICAL HISTORY: Screening, Z12.31 TECHNIQUE: Bilateral full field digital CC and MLO mammographic images were obtained with 3D tomosynthesis and utilizing computer aided detection (CAD). COMPARISON: Comparison is made with prior examinations. FINDINGS: Masses/Architectural Distortion: No suspicious masses or areas of architectural distortion are present. Microcalcifications: No suspicious pleomorphic-type are seen. Skin Thickening/Nipple Retraction: None. IMPRESSION: 1. No significant interval change with no specific features of malignancy noted. 2. Unless there is more urgent need, screening mammography is recommended, as per [place] [employer] guidelines. BI-RADS Category 1 - Negative Breast Density - Category C - The breast are heterogeneously dense, which may obscure small masses. Breast density Category C or D implies that the patient has dense breast tissue. Dense breast tissue can make it harder to find cancer on a mammogram. Dense breast tissue is also associated with an increased risk of breast cancer. This information about the result of the mammogram report was provided to the patient to raise their awareness. Use this report when you speak with the patient about their risks for breast cancer, which includes their family history. At that time, you may recommend additional screening tests (Ultrasound or MRI) as these tests may add significant information. A negative radiographic report should not delay biopsy if a dominant or clinically suspicious mass is present. Up to ten percent of cancers are not identified on mammography. A negative report may reinforce clinical impression. Adenosis and dense breasts may obscure an underlying neoplasm. False positive reports average 6 to 10%. Patient will receive a letter notifying them of these results.
== END 2025-05-04 02:48 ==
PROVIDERS: PCP Nurse Practitioner Primary Care; Visit Provider Nurse Practitioner Family
DX: Z12.31 Encounter for screening mammogram for malignant neoplasm of breast (principal); R92.333 Mammographic heterogeneous density, bilateral breasts
CPT/HCPCS: 77063; 77067